=== PATIENT | female | born 1955 | race Caucasian/White ===

== ENCOUNTER 2024-11-04 08:18 | Outpatient (CLI) | payer MEDICARE, SELFPAY ==
--- NOTE | 2024-12-02 08:15 | P.SLEEP_ITS ---
Sleep Study Date of Study: 11/04/24 Ordering Provider: Zheng Ford, SERVICE SUPERVISOR Interpreting Physician: Karissa Verdin, Sleep Study Type: Polysomnogram Height: 1.65 m Weight: 85.275 kg Body Mass Index: 31.2 Neck Circumference (inches): 16 [place]: 13 Reason for Sleep Study Snoring, witnessed apneas Sleep History The patient is a 69-year-old female that had a sleep study ordered by her ENT for evaluation of sleep apnea. The patient denies awakening from sleep short breath. She rarely awakens at night with heartburn, belching. She frequently snores and is frequently loud enough that others complain. She frequently has trouble sleep when she has a cold. She denies waking up gasping for air throughout the night. She frequently has breathing problems at night observed by herself or others. She occasionally sweats excessively at night. She denies having heart palpitations or irregular heartbeats during the night. She occasionally falls asleep during the day but never while driving. She denies sleep paralysis, cataplexy and hypnagogic / hypnopompic hallucinations. She denies having trouble at school or work. She denies feeling afraid of going to sleep. She rarely has nightmares. She rarely remembers her dreams. She occasionally has thoughts racing through her mind. She rarely feels sad or depressed. She occasionally has anxiety. She occasionally has muscular tension. She denies noticing parts of her body jerk. She denies kicking during the night. She rarely has crawling and aching feelings her legs but occasionally has leg pain during the night. She occasionally grinds her teeth during sleep and occasionally awakens with morning jaw pain. She is occasionally bothered by pain during the day rarely awakened by pain during the night. She occasionally wakes up feeling stiff in morning. She occasionally wakes up with sore or achy muscles. She frequently wakes up with pain in the neck, spine or other joints. She goes to bed at 10:30 p.m. on weekdays and between 10 30-11 p.m. on the weekends. It takes her 5 minutes to fall asleep. She wakes up 2-3 times per night to urinate and it can take anywhere from a few minutes up to several hours to fall back asleep. She wakes up between 6-7 a.m. weekdays and 7:30 a.m. weekends. She typically gets 6.5-8 hours of sleep he will stay in bed for 5-10 minutes after waking up in the morning. She denies consuming any caffeinated beverages within 2 hours of bedtime. She denies engaging in physical exercise before bedtime. She will watch television before falling asleep. She will occasionally take naps in the afternoon or the evening but they are not refreshing. She consumes 2-4 caffeinated beverages per day. She rarely consumes an alcoholic beverage. She denies tobacco and recreational drug use. Sleep Procedure A full night polysomnogram using the [employer] multi-channel system recorded the standard physiologic parameters including EEG, EOG, submentalis EMG, anterior tibialis EMG, EKG, body position, nasal and oral airflow using nasal pressure sensor and thermistor.? Respiratory parameters of chest and abdominal movements were recorded with Respiratory Inductance Plethysmography belts. Oxygen saturation was recorded by pulse oximetry. Video monitoring was also performed. Sleep stages, periodic limb movements, and EEG arousals were scored in 30 second epochs according to the criteria of the AASM Scoring Manual. The Apnea-Hypopnea Index was calculated using CMS guidelines for definition of hypopnea with 4% O2 desaturations while scoring respiratory events. Sleep Architecture The total recording time was 471.6 minutes.? The total sleep time was 334.0 minutes. Sleep latency was 9.5 minutes. REM latency was 382.0 minutes. Sleep efficiency was 70.8%. The patient had 57 awakenings for an awakening index of 10.2. Wake after sleep onset time was 128.5 minutes. The patient spent 97.0 min utes, 29.0% of total sleep time in Stage N1. The patient spent 177.5 minutes, 53.1% in Stage N2. The patient spent 49.5 minutes, 14.8% in Stage N3. The patient spent 10.0 minutes, 3.0% in Stage REM sleep. Respiratory Analysis The patient had 43 hypopneas, 59 obstructive apneas and 30 central apneas for an overall Apnea Hypopnea Index of 23.7. The REM Apnea Hypopnea Index was 36.0. The NREM Apnea Hypopnea Index was 23.7. The patient had a Central Apnea Hypopnea Index of 5.4. There was no evidence of Armen-Hawkins Respirations. Arousals There were 262 total arousals for an arousal index of 47.1. There were 59 spontaneous arousals for an index of 10.6. There were 113 arousals due to respiratory events for an index of 20.3. There were 70 arousals due to periodic limb movements for an index of 12.6.? There were 21 arousals due to isolated limb movements for an index of 3.8. Periodic Limb Movements The patient had 29 isolated limb movements with an index of 5.2. The patient had 85 periodic limb movements with an index of 15.3. Patient had a total of 114 limb movements with a total limb movement index of 20.5. Oximetry Data The patient had an average oxygen saturation of 93.3% in sleep with a minimum oxygen saturation of 78.0% and a maximum oxygen saturation of 98.0%. The patient had 104 oxygen desaturations that were 4% or greater resulting in an Oxygen Desaturation Index of 18.7.? The patient spent 10.4 minutes, 2.2% of total sleep time with an oxygen saturation below 88%. Snoring Profile Mild to moderate snoring was present throughout the study. Cardiac Profile The EKG showed normal sinus rhythm. No arrhythmias or premature beats were seen. The patient had an average pulse rate of 64.3 bpm with a minimum pulse of rate of 57.0 bpm and a maximum pulse rate of 86.0 bpm.? EEG Profile No signs of seizure activity seen. Assessment and Plan Assessment and Plan (1) LUZ MARIA (obstructive sleep apnea): Code(s): G47.33 - Obstructive sleep apnea (adult) (pediatric) Status: Acute Assessment and Plan: The patient had an overall AHI of 23.7 with desaturation down to 78%. This is consistent with moderate sleep apnea. The patient had a central apnea index of 5.4, which is elevated (normal < 5). Due to the elevated central apnea index, the patient is not an ideal candidate for AutoPAP. AutoPAP can increase the frequency and severity of central apneas. I recommend that the patient have a CPAP Titration study with the use of a hypnotic (Lunesta 2-3 mg or Ambien 5-10 mg) to ensure we obtain enough sleep data and find an optimal pressure setting. *The patient needs to have an echocardiogram done to rule out cardiogenic causes of an elevated central apnea index* Data The data obtained during this sleep study is adequate for interpretation. Certification This sleep study has been reviewed by a board certified sleep medicine physician.
[2024-12-06 13:47] VITALS: BMI 31.2
== END 2024-11-05 21:19 | disposition home or self-care (01) ==
LOC: ANHCSM 08:19
PROVIDERS: Visit Provider Nurse Practitioner Family
DX: G47.33 Obstructive sleep apnea (adult) (pediatric) (principal)
CPT/HCPCS: 95810

== ENCOUNTER 2025-01-25 07:43 | Outpatient (CLI) | payer MEDICARE, BC, SELFPAY ==
--- OUTSIDE RECORDS SUMMARY | 2025-01-25 07:49 | XMS_ITS | Referral Summary ---
Author Organization [facility] Address [address] [place] [id number] Care Team Providers Care Department Store General Manager Name Role Phone Vera Ramirez NP Primary Care Provider + Linwood Moreno MD Unavailable Nicolette Gerard Unavailable [phone] Encounters Date Type Department Care Team Description 01/12/2025 3:30 PM BAKED GOODS STOCK CLERK Office Visit [facility] Obstetrical Gynecology [address] [place] [address] Claudette Galeas MD Well woman exam with routine gynecological exam (Primary Dx) 12/08/2024 1:00 PM BAKED GOODS STOCK CLERK Office Visit [facility] Cardiology [address] [place] [address] Carlos Morrissey MD Coronary artery disease involving [place] coronary artery of [place] heart without angina pectoris (Primary Dx); Mixed hyperlipidemia; Obesity (BMI 30.0-34.9) from Last 3 Months Allergies Active Allergy Reactions Criticality Noted Date Comments Amoxicillin Rash Medium 01/03/2022 Atorvastatin Other (See comments) High 10/27/2019 Hydrochlorothiazide Rash Medium 06/01/2013 Penicillin V Rash Medium 08/04/2023 Penicillins Rash,Other (See comments) Medium 11/09/2009 Phenazopyridine Rash,Other (See comments) Medium 10/27/2019 Possibly rash----or may be the HCTZ caused rash. Pollen Extracts Other (See comments) Low 09/25/2012 Ragweed Rhinitis Low 09/25/2012 seasonal Rosuvastatin Other (See comments) Medium 10/27/2019 Sulfa (Sulfonamide Antibiotics) Rash,Other (See comments) Medium 10/27/2019 unknown Medications calcium carbonate/vitam in D3 (CALCIUM 500 + D, D3, ORAL) Take 1 tablet by mouth nightly Active vit A/vit C/vit E/zinc/copper (ICAPS AREDS ORAL) Take 1 tablet by mouth 2 (two) times a day Active cholecalciferol (VITAMIN D-3) 2000 unit capsule Take 2 capsules (4,000 Units total) by mouth daily Active cranberry 500 mg capsule Take 500 mg by mouth daily 01/21/2022 Active Nystop powder as needed 07/15/2023 Activ e acidophilus-pec tin, citrus 100 million cell-10 mg capsule Take 1 tablet by mouth daily Active aspirin 81 mg chewable tablet Take 1 tablet (81 mg total) by mouth 2 (two) times a day for 14 days 28 tablet 08/26/2023 Active fenofibrate (TRIGLIDE) 160 mg tablet TAKE 1 TABLET BY MOUTH ONCE A DAY 30 tablet 2 06/14/2024 Active ezetimibe (ZETIA) 10 mg tablet TAKE 1 TABLET BY MOUTH ONCE A DAY 30 tablet 6 10/13/2024 Active krill oil 500 mg capsule Take by mouth Activ e azelastine (ASTELIN) 137 mcg (0.1 %) nasal spray Active vit D3-vit Q-dxcmsjrve-muc s [id number] mapf-zvw-lh-mg tablet Take by mouth Active Active Problems Problem Noted Date Diagnosed Date Colon cancer screening 07/08/2024 History of ankle surgery 09/08/2023 Overview (09/08/2023): Left ankle arthroscopy with retrograde drilling talus /tibia Assessment & Plan (09/08/2023 1:53 PM CDT): Patient is doing very well overall. Her pain is well controlled with eshx-xss-ncvoqqi pain medication. There is no evidence of infection of the surgical site. Sutures were removed today in clinic and Steri-Strips were applied. Discussed with the patient to continue to keep the surgical site clean and dry until her follow-up appointment. Reviewed signs of infection today with the patient including purulent drainage, increased erythema and swelling around the surgical sites, increased pain in the ankle, fever, chills and she will notify us if she develops any of these. Discussed with the patient she should continue to remain nonweightbearing on the ankle for the next 2 weeks. In 2 weeks she may begin to put some weight on the ankle while in the boot for transfers and for ambulation of short distances only. She expressed understanding of this. She will follow up with Dr. Ortiz in 4 weeks for 6 week postop appointment where she will need x-rays. Osteochondral defect of ankle 08/21/2023 Cramps of lower extremity 08/04/2023 Low back pain 08/04/2023 Pain in axilla 08/04/2023 Pain in thoracic spine 08/04/2023 Seasonal allergies 08/04/2023 Skin problem 08/04/2023 Obesity (BMI 30.0-34.9) 10/16/2022 Osteopenia 08/19/2022 Overview (08/04/2023): hips Calcaneal spur of left foot 08/09/2022 Hiatal hernia 06/05/2022 Neuralgia of right sciatic nerve 01/01/2021 Coronary artery disease invo lving [place] coronary artery of [place] heart without angina pectoris 11/06/2020 S/P drug eluting coronary stent placement 2019 Essential hypertension 11/06/2020 Precordial pain 08/14/2020 Snoring 07/27/2020 Metabolic dysfunction-associ ated steatotic liver disease (MASLD) 07/05/2020 Assessment & Plan (06/28/2024 7:12 PM CDT): Essentially unchanged based on the absence of change in her weight. Obviously, stability is preferred over an increase in weight. However, I would like to see her decrease her weight through caloric restriction and a regular exercise program. This is clearly the most effective means of decreasing hepatic steatosis and minimizing long-term liver damage. I gave her a weight loss goal of 10 lb over the course of the next year. She will return in 1 year or when clinically indicated. Assessment & Plan (06/23/2023 11:37 AM CDT): Fortunately she has normal liver chemistries. She has gained weight since her last office visit. We recommend lifestyle changes including regular exercise and dietary changes including calorie restriction to maintain a healthy weight. She will benefit from referral to a doctor of audiology on diet education. Assessment & Plan (04/29/2022 3:47 PM CDT): Patient's weight has been stable over the past year so but she did lose initial weight of 25-30 lb after diagnosis of fatty liver. She had recent CT urogram which showed normal liver size and recent LFTs in March of 2022 which were normal. We encouraged her continued efforts at weight loss. She will return to clinic in 1 year or sooner if clinically indicated. Assessment & Plan (05/14/2021 5:18 PM CDT): Based on imaging studies and multiple features of the metabolic syndrome. We discussed the cause of increased hepatic fat, i.e., inadequate metabolism of fat delivered to the liver. When associated with elevated transaminases, this is non-alcoholic steatohepatitis. This inflammation can lead to scar tissue or cirrhosis of the liver in approximately 30% of cases. Patients with cirrhosis are at risk for developing complications of portal hypertension, liver failure, , liver cancer, and/or the need for a liver transplant. Fat in the absence of elevated transaminases is non-alcoholic fatty liver disease. Routinely, this is not associated with inflammation or progressive hepatic fibrosis. The most effective treatment of fatty liver is weight loss, ideally achieved through a combination of caloric restriction and exercise. Aerobic exercise for 4 hours a week can accelerate fat metabolism and lead to improvement of liver tests. Weight loss of 5-10% of the current body weight usually leads to improvement in liver tests, liver inflammation, and a decrease in hepatic fibrosis. Her weight loss has likely resulted in a decrease in hepatic fat. The pitt is maintaining her current weight her even losing additional weight. Unfortunately, gaining weight will lead to a further increase in hepatic fat. There is no obvious evidence of hepatic fibrosis. I see no contraindication to the occasional ingestion of an alcoholic beverage. I asked her to return in 1 year or when clinically indicated. Prediabetes 05/16/2020 Vitamin D deficiency 07/07/2019 Acute serous otitis media of right ear 6 Cystitis 08/24/2015 Overview (08/04/2023): Added automatically from request for surgery [id number] Mixed hyperlipidemia 12/16/2014 Acute upper respiratory infection 11/10/2014 Disorder of skin or subcutaneous tissue 11/10/20 14 Disease of hair and hair follicles 10/18/2014 Cellulitis and abscess of trunk 10/17/2014 Blood in urine 05/21/2013 Knee pain 09/25/2012 Osteoarthritis 09/25/2012 Spinal stenosis in cervical region 09/24/2012 Hypercholesterolemia 09/24/2012 Dysuria 11/09/2009 Resolved Problems Problem Noted Date Diagnosed Date Resolved Date S/P drug eluting coronary stent placement 11/06/2020 11/06/2020 Dyslipidemia 08/14/2020 10/15/2021 Obesity (BMI 35.0-39.9 without comorbidity) 08/14/2020 10/16/2022 Immunizations Immunization Administration Dates Next Due Flucelvax Influenza Quad 09/29/2019,01/02/2018 Hep B Vaccine 08/17/2002,04/20/2002,03/16/2002 Influenza, Quadrivalent, Karo l Culture-based MDCK, Antibiotic Free, Intramuscular 10/27/2018 Influenza, Quadrivalent, Karo l Culture-based MDCK, Preservative Free, Antibiotic Free, Intramuscular 08/29/2020 Influenza, Quadrivalent, Spl it, Intramuscular 08/29/2020 Influenza, Trivalent, Preser vative Free, Intramuscular 10/28/2016,12/08/2012 Moderna SARS-CoV-2 Monovalen t Vaccination (12+ YRS) 01/05/2021,12/04/2020 Tdap 11/05/2013 Social History Tobacco Use Types Packs/Day Years Used Date Smoking Tobacco: Never Smokeless Tobacco: Never Tobacco Cessation:Counseling Given: Not Answered Alcohol Use Standard Drinks/Week Comments Yes 0 (1 standard drink = 0.6 oz pur e alcohol) AUDIT-C Answer Date Recorded Q1: How often do you have a drink containing alc ohol? 2-4 times a month 08/16/2024 Q2: How many drinks containi ng alcohol do you have on a typical day when you are drinking? 1 or 2 08/16/2024 Q3: How often do you have si x or more drinks on one occasion? Never 08/16/2024 Personal Safety Answer Date Recorded Have you ever been in or are you currently in a harmful physical or emotional relationship or is someone making you feel afraid or unsafe? 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 Not on file Not on file Last Filed Vital Signs Vital Sign Reading Time Taken Comments Blood Pressure 156/78 01/12/2025 3:29 PM BAKED GOODS STOCK CLERK Pulse 79 12/08/2024 1:41 PM BAKED GOODS STOCK CLERK Temperature 37.1 C (98.8 F) 08/16/2024 9:56 AM CDT Respiratory Rate 19 08/16/2024 10:35 AM CDT Oxygen Saturation 100% 08/16/2024 10:35 AM CDT Inhaled Oxygen Concentration - - Weight 90.7 kg (200 lb) 01/12/2025 3:29 PM BAKED GOODS STOCK CLERK Height 166.4 cm (5' 5.51 ) 01/12/2025 3:29 PM CS T Body Mass Index 32.76 01/12/2025 3:29 PM BAKED GOODS STOCK CLERK Plan of Treatment Not on file Medical Devices Implanted Type Area Parts Professional Device Identifier Shelf Expiration Date Model / Serial / Lot [place] Neck Description:Also 6 screws p laced in my neck Stent N/A: Chest Description:Cardiac stent 10/02/2020 [employer] Pro-Dense Injectable Regenerative Triphasic Resorption Profile [id number] - [id number] Implanted:Qty: 1 on 08/26/2023 by Pasquale Ortiz DO at [facility] Left: Ankle [employer] [id number] 09/15/2024 [id number] / / [id number] [employer] Graft Bone Filler Regn Inj Pro Dense 5cc [id number] - [id number] Implanted:Qty: 1 on 08/26/2023 by Pasquale Ortiz DO at [facility] Left: Ankle [employer] [id number] 07/02/2028 [id number] / / [id number] Procedures Procedure Name Priority Date/Time Associated Diagnosis Comments HEPATIC FUNCTION PANEL Routine 11/10/2024 11:12 AM BAKED GOODS STOCK CLERK Coronary artery disease involving [place] coronary artery of [place] heart without angina pectoris Mixed hyperlipidemia Obesity (BMI 30.0-34.9) LIPID PANEL Routine 11/10/2024 11:12 AM BAKED GOODS STOCK CLERK Coronary artery disease involving [place] coronary artery of [place] heart without angina pectoris Mixed hyperlipidemia Obesity (BMI 30.0-34.9) COLONOSCOPY 08/16/2024 9:37 AM CDT SCREENING MAMMOGRAM BILATERAL W TRE Schedule Routine, Read Routine (OP Routine) 06/28/2024 1:21 PM CDT Screening mammogram, encounter for from Last 3 Months or Most Recently Relevant to Health Maintenance Results * Hepatic function panel (11/10/2024 11:12 AM BAKED GOODS STOCK CLERK) Protein, sr 6.8 6.0 - 8.5 g/dL [facility] - 01 Albumin 4.9 3.9 - 4.9 g/dL [facility] - 01 Bilirubin, Total 0.3 0.0 - 1.2 mg/dL [facility] - 01 Bilirubin, direct 0.14 0.00 - 0.40 mg/dL [facility] - 01 Alk phos 93 44 - 121 IU/L [facility] - 01 AST 27 0 - 40 IU/L [facility] - 01 ALT 29 0 - 32 IU/L [facility] - 01 Blood 11/10/2024 11:1 2 AM BAKED GOODS STOCK CLERK 11/10/2024 Narrative [facility] - 11/11/2024 9:36 AM BAKED GOODS STOCK CLERK Performed at: 01 - [facility] [address] [id number] Pump Operator Byproducts: Andrey Roy PhD, Phone: [phone] us Carlos Morrissey MD LAB BLOOD ORDERABLES Final Result [facility] - 01 * Lipid panel (11/10/2024 11:12 AM BAKED GOODS STOCK CLERK) Cholesterol 149 100 - 199 mg/dL [facility] - 01 Triglycerides 139 0 - 149 mg/dL [facility] - 01 HDL Cholesterol 50 >39 mg/dL [facility] - 01 VLDL 24 5 - 40 mg/dL [facility] - 01 LDL, calculated 75 0 - 99 mg/dL [facility] - 01 Blood 11/10/2024 11:1 2 AM BAKED GOODS STOCK CLERK 11/10/2024 Narrative [facility] - 11/11/2024 9:36 AM BAKED GOODS STOCK CLERK Performed at: - [facility] [id number] Pump Operator [employer]products: Andrey Roy PhD, Phone: [phone] us Carlos Morrissey MD LAB BLOOD ORDERABLES Final Result [facility] * Colonoscopy (08/16/2024 9:37 AM CDT) Anatomical Region Laterality Modality Other Narrative Procedure Note Milind Us MD - 08/16/2024 9:37 AM CDT ENDOSCOPY LAB Patient Name: Dilip Shannon Procedure Date: 08/16/2024 9:37 AM Date of : 1955 Admit Type: Outpatient Age: 69 Gender: Female Attending MD: Milind Us M.D. Room: [facility] ENDOSCOPY ROOM 04 Note Status: Finalized Procedure: Colonoscopy Indications: High risk colon cancer surveillance: Personalhistory of colonic polyps, Last colonoscopy: 2019 Providers: Milind Us M.D. Referring MD: Skinny Odell M.D. Medicines: Monitored Anesthesia Care Complications: No immediate complications. Estimated Blood Loss: Estimated blood loss: none. Procedure: Pre-Anesthesia Assessment: - The risks and benefits of the procedure and the sedation options and risks were discussed with the patient. All questions were answered and informed consent was obtained. - Immediately prior to administration ofmedications, the patient was re-assessed for adequacy to receive sedatives. The benefits, risks and alternatives of theprocedure and sedation were discussed and informed consentwas obtained. All questions were answered. Please referto the signed informed consent document in the medical record. The scope was passed under direct vision.The [id number] was introduced through the anusand advanced to the cecum, identified by appendiceal orifice and ileocecal valve. The colonoscopy was performed without difficulty. The patient tolerated the procedure well. The quality of the bowel preparation was adequate. The bowel preparationused was GoLYTELY via split dose instruction. Findings: The perianal and digital rectal examinations were normal. A 5 mm polyp was found in the transverse colon. The polyp wassessile. The polyp was removed with a cold snare. Resection and retrieval were complete. The exam was otherwise without abnormality on direct and retroflexion views. Impression: - One 5 mm polyp in the transverse colon, removedwith a cold snare. Resected and retrieved. - The examination was otherwise normal on directand retroflexion views. Recommendation: - Return to referring physician as previously scheduled. - Await pathology results. - Repeat colonoscopy in 5 years for surveillance. Attending Participation: I personally performed the entire procedure. Electronically signed by Milind Us M.D. Milind Us M.D. 08/16/2024 9:57:19 AM Number of Addenda: 0 Note Initiated On: 08/16/2024 9:37 AM Milind Us MD ENDOSCOPY PROCEDURES Final Result * Screening Mammogram Bilateral W Tre (06/28/2024 1:21 PM CDT) Anatomical Region Laterality Modality Breast Bilateral Mammography Narrative 06/29/2024 3:09 PM CDT Mammogram Technique: Bilateral Digital Breast Tomosynthesis, Bilateral C-view 2D Screening mammogram. Views obtained: bilateral craniocaudal and bilateral mediolateral oblique. Computer Aided Detection was performed. Mammogram Findings: The present examination has been compared to prior imaging studies performed at [facility] on 01/17/2020, 10/22/2021 and 06/04/2023. There are scattered areas of fibroglandular density. There is no suspicious abnormality in either breast. Impression: There is no mammographic evidence of malignancy. Annual screening mammography is recommended. OVERALL FINAL ASSESSMENT: BI-RADS CATEGORY 1: Negative. Procedure Note Rigoberto Okeefe MD - 06/29/2024 Mammogram Technique: Bilateral Digital Breast Tomosynthesis, Bilateral C-view 2D Screening mammogram. Views obtained: bilateral craniocaudal and bilateral mediolateral oblique. Computer Aided Detection was performed. Mammogram Findings: The present examination has been compared to prior imaging studies performed at [facility] on 01/17/2020,10/22/2021 and 06/04/2023. There are scattered areas of fibroglandular density. There is no suspicious abnormality in either breast. Impression: There is no mammographic evidence of malignancy. Annual screening mammography is recommended. OVERALL FINAL ASSESSMENT: BI-RADS CATEGORY 1: Negative. Self Screening Mammogram IMG MAMMO PROCEDURES Fi nal Result from Last 3 Months or Most Recently Relevant to Health Maintenance Insurance MEDICARE [facility] [employer] [id number] [place] [address] MEDICARE [facility] [employer] Advance Directives For more information, please contact: [phone] Documents on File Type Date Recorded Patient After School Program Assistant Expl anation ADVANCE DIRECTIVE 01/14/2022 7:35 AM Power of Wrecking Mechanic-Medical * Full Code (Latest Code Status on File) Date Activated Date Inactivated Comments 08/16/2024 9:15 AM 08/16/2024 2:59 PM Care Teams Department Store General Manager Relationship Specialty Start Date End Date Vera Ramirez [address] [place] [address] PCP - General 11/13/20 Linwood Moreno MD [address] [place] [address] Consulting Physician Urology 01/22/22 Nicolette Gerard PA [address] [place] [address] Orthopedic Surgery 08/26/23
--- OUTSIDE RECORDS SUMMARY | 2025-01-25 07:49 | XMS_ITS | Clinical Summary ---
Author Organization [facility] Address [address] [place] [id number] Care Team Providers Care Office Manager Name Role Phone Vera Ramirez NP Primary Care Provider + Linwood Moreno MD Unavailable Nicolette Gerard Unavailable [phone] Allergies Active Allergy Reactions Criticality Noted Date [...] (0.1 %) nasal spray Active vit D3-vit W-nbtqekwpo-djb s [phone] kflp-yqi-pr-mg tablet Take by mouth Active Active Problems Problem Noted Date Diagnosed Date Colon cancer screening 07/08/2024 History of ankle surgery 09/08/2023 Overview (09/08/2023): Left ankle arthroscopy with retrograde drilling talus /tibia Assessment & Plan (09/08/2023 1:53 PM CDT): Patient is doing very well overall. Her pain is well controlled with xtrq-mut-jltzrpu pain medication. There is no evidence of [...] nerve 01/01/2021 Coronary artery disease invo lving lummi coronary artery of lummi heart without angina pectoris 11/06/2020 S/P drug [...] She will benefit from referral to a labeling machine operator on diet education. Assessment & Plan (04/29/2022 [...] (08/04/2023): Added automatically from request for surgery [id number] Mixed hyperlipidemia 12/16/2014 Acute upper respiratory infection [...] Obesity (BMI 35.0-39.9 without comorbidity) 08/14/2020 10/16/2022 Encounters Date Type Department Care Team Description 01/12/2025 3:30 PM SUPERVISOR TRAIN OPERATIONS Office Visit [facility] Obstetrical Gynecology [address] [place] [phone] Claudette Galeas MD Well woman exam with routine gynecological exam (Primary Dx) 12/08/2024 1:00 PM SUPERVISOR TRAIN OPERATIONS Office Visit [facility] [address] [place] [phone] Carlos Morrissey MD Coronary artery disease involving lummi coronary artery of lummi heart without angina pectoris (Primary Dx); Mixed hyperlipidemia; Obesity (BMI 30.0-34.9) from Last 3 Months Immunizations Immunization Administration Dates Next Due Flucelvax Influenza Quad 09/29/2019,01/02/2018 Hep B Vaccine 08/17/2002,04/20/2002,03/16/2002 Influenza, Quadrivalent, Karo l Culture-based MDCK, Antibiotic Free, Intramuscular 10/27/2018 Influenza, Quadrivalent, Karo l Culture-based MDCK, Preservative Free, Antibiotic Free, Intramuscular 08/29/2020 Influenza, Quadrivalent, Spl it, Intramuscular 08/29/2020 Influenza, Trivalent, Preser vative Free, Intramuscular 10/28/2016,12/08/2012 Moderna SARS-CoV-2 Monovalen t Vaccination (12+ YRS) 01/05/2021,12/04/2020 Tdap 11/05/2013 Surgical History Surgery Date Site/Laterality Comments SD TONSILLECTOMY PRIMARY/SECONDARY <AGE 13 11/24/1967 - 11/23/1968 Tonsillectomy - 1967 (Added by TW Conv) NECK SURGERY 11/24/2004 - 11/23/2005 Neck Surgery - (Added by TW Conv) SECTION SECTION SECTION CARDIAC CATHETERIZATION 11/24/2019 - 11/23/2020 CYSTOSTOMY W/ BLADDER BIOPSY 05/24/2012 - 06/23/2012 CORONARY STENT PLACEMENT 11/24/2019 - 11/23/2020 one stent COLONOSCOPY 11/24/1999 - 11/23/2000 polypectomy SD CHOLECYSTECTOMY 11/24/1997 - 11/23/1998 Cholecystectomy - (Added by TW Conv) SECTION, CLASSIC 82,85,87 ANKLE SURGERY 08/26/2023 Left Ankle Arthroscopy With Retrograde Drilling Talus/tibia POLYPECTOMY Medical History Medical History Date Comments Personal history of other en docrine, nutritional and metabolic disease History of hyperchol esterolemia - (Added by TW Conv) Personal history of other di seases of the circulatory system History of hypertension - (A dded by TW Conv) Hyperlipidemia High cholesterol History of recurrent UTIs Hematuria, gross at times Hypertension checks at home B P ok, no meds, has white coat syndrome where BP goes up with MD visits Irritable bowel syndrome occassi onal bouts of diarrhea, very spuratic PONV (postoperative nausea a nd vomiting) per pt, it happens while she is still asleep Wears glasses S/p dental crown 1 or 2 Urinary tract infection Burn on back 2 small spots from heating pad wear bra hooks Sciatica right side Asthma Snores Hiatal hernia Obesity Ankle injuries, left, sequela Liver disease Colon polyp Coronary artery disease Heart disease Arthritis Abnormal Pap smear of cervix Family History Medical History Relation Name Comments Diabetes Father Talon Martin Heart attack Father Talon Martin Heart disease Father Talon Martin Hyperlipidemia Father Talon Martin Hypertension Father Talon Martin Obesity Father Talon Martin Vision loss Father Talon Martin chest cancer Maternal Grandmother Bladder Cancer Mother Bret Martin Family his tory of bladder cancer - (Added by TW Conv) Cancer Mother Bret Martin Diabetes Mother Bret Martin Heart disease Mother Bret Martin Hyperlipidemia Mother Bret Martin Hypertension Mother Bret Martin Kidney disease Mother Bret Martin Obesity Mother Bret Martin Vision loss Mother Bret Martin Colon cancer Other Breast cancer Neg Hx Ovarian cancer Neg Hx Uterine cancer Neg Hx Relation Name Status Comments Father Talon Martin Maternal Grandmother Mother Bret Martin Other Social History Tobacco Use Types Packs/Day Years [...] on file Legal Sex Female 7:53 PM SUPERVISOR TRAIN OPERATIONS Gender Identity Female 05/11/2021 11:31 AM CDT Sexual Orientation Not on file 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 Not on file Not on file Obstetrics History Para Term AB IAB SAB Ectopic Multiple Livin g Live Births 3 3 3 Date Outcome GA Total Labor Labor/2nd/3rd Weight Sex Type Anes PTL Lisbeth A1 A5 Name Clin Para Para Para Comments 11/18 Last Filed Vital Signs Vital Sign Reading Time Taken Comments Blood Pressure 156/78 01/12/2025 3:29 PM SUPERVISOR TRAIN OPERATIONS Pulse 79 12/08/2024 1:41 PM SUPERVISOR TRAIN OPERATIONS Temperature 37.1 C (98.8 F) 08/16/2024 9:56 AM CDT Respiratory Rate 19 08/16/2024 10:35 AM CDT Oxygen Saturation 100% 08/16/2024 10:35 AM CDT Inhaled Oxygen Concentration - - Weight 90.7 kg (200 lb) 01/12/2025 3:29 PM SUPERVISOR TRAIN OPERATIONS Height 166.4 cm (5' 5.51 ) 01/12/2025 3:29 PM CS T Body Mass Index 32.76 01/12/2025 3:29 PM SUPERVISOR TRAIN OPERATIONS Plan of Treatment Health Maintenance Due Date Last Done Comments Depression Screening 1955 Hepatitis C Screening 1955 Pneumococcal vaccine 65+ (1 of 2 - PCV) 1975 Zoster Vaccine (1 of 2) 2006 Well Visit 65+ 2021 10/27/2019 Influenza Vaccine (#1) 2024 , 08/29/2020, 09/29/2019, Additional history exists Osteoporosis Screening-Bone Density Scan 08/14/2024 08/14/2022, 08/08/2022, 06/05/2022 Covid-19 Vaccine (2023-2 5 season) 2024 08/30/2024, 06/05/2022, 11/09/2021, Additional history exists Breast Cancer Screening-Mammogram 06/28/2025 06/28/2024, 06/04/2023, 10/23/2021, Additional history exists Fall Risk Assessment 08/16/2025 08/16/2024 Colon Cancer Screening-Colonoscopy 08/16/2034 08/16/2024, 04/25/2014 DTaP/Tdap/Td Vaccine (3 - Td or Tdap) 08/18/2034 08/18/2024, 11/05/2013 Colon Cancer Screening-CT Colonography Discontinued 08/16/2024, 04/25/2014 Colon Cancer Screening-DNA Stool Discontinued 08/16/20 24, 04/25/2014 Colon Cancer Screening-FIT Discontinued 08/16/2024, Colon Cancer Screening-Sigmoidoscopy Discontinued 08/16/2024, 04/25/2014 Medical Devices Implanted Type Area Manager Business Management Device Identifier Shelf Expiration Date Model / Serial / Lot [place] Neck Description:Also 6 screws p laced in my neck Stent N/A: Chest Description:Cardiac stent 10/02/2020 [employer] Pro-Dense Injectable Regenerative Triphasic Resorption Profile [id number] - [id number] Implanted:Qty: 1 on 08/26/2023 by Pasquale Ortiz DO at [facility] Left: Ankle [employer] [id number] 09/15/2024 [id number] / / [id number] [employer] Graft Bone Filler Regn Inj Pro Dense 5cc [id number] - [id number] Implanted:Qty: 1 on 08/26/2023 by Pasquale Ortiz DO at [facility] Left: Ankle [employer] [id number] 07/02/2028 [id number] / / [id number] Procedures Procedure Name Priority Date/Time Associated Diagnosis Comments HEPATIC FUNCTION PANEL Routine 11/10/2024 11:12 AM SUPERVISOR TRAIN OPERATIONS Coronary artery disease involving lummi coronary artery of lummi heart without angina pectoris Mixed hyperlipidemia Obesity (BMI 30.0-34.9) LIPID PANEL Routine 11/10/2024 11:12 AM SUPERVISOR TRAIN OPERATIONS Coronary artery disease involving lummi coronary artery of lummi heart without angina pectoris Mixed hyperlipidemia Obesity (BMI 30.0-34.9) COLONOSCOPY 08/16/2024 9:37 AM CDT SCREENING MAMMOGRAM BILATERAL W TRE Schedule Routine, Read Routine (OP Routine) 06/28/2024 1:21 PM CDT Screening mammogram, encounter for from Last 3 Months or Most Recently Relevant to Health Maintenance Results * Hepatic function panel (11/10/2024 11:12 AM SUPERVISOR TRAIN OPERATIONS) Protein, sr 6.8 6.0 - 8.5 g/dL [...] - 01 Blood 11/10/2024 11:1 2 AM SUPERVISOR TRAIN OPERATIONS 11/10/2024 Narrative [facility] - 11/11/2024 9:36 AM SUPERVISOR TRAIN OPERATIONS Performed at: - [address] [id number] Die Cast Engineer: Andrey Roy PhD, Phone: [phone] us Carlos Morrissey MD LAB BLOOD ORDERABLES Final Result [facility] - 01 * Lipid panel (11/10/2024 11:12 AM SUPERVISOR TRAIN OPERATIONS) Cholesterol 149 100 - 199 mg/dL [facility] - 01 Triglycerides 139 0 - 149 mg/dL [facility] - 01 HDL Cholesterol 50 >39 mg/dL [facility] - 01 VLDL 24 5 - 40 mg/dL [facility] - 01 LDL, calculated 75 0 - 99 mg/dL [facility] - 01 Blood 11/10/2024 11:1 2 AM SUPERVISOR TRAIN OPERATIONS 11/10/2024 Narrative [facility] - 11/11/2024 9:36 AM SUPERVISOR TRAIN OPERATIONS Performed at: [facility] [address] [id number] Die Cast Engineer: Andrey Roy PhD, Phone: [phone] us Carlos Morrissey MD LAB BLOOD ORDERABLES Final Result [facility] * Colonoscopy (08/16/2024 9:37 AM CDT) Anatomical Region Laterality Modality Other Narrative Procedure Note Milind Us MD - 08/16/2024 9:37 AM CDT ENDOSCOPY LAB Patient Name: Dilip Shannon Procedure Date: 08/16/2024 9:37 AM Date of : 1955 Admit Type: Outpatient Age: 69 Gender: Female Attending MD: Milind Us M.D. Room: [facility] ENDOSCOPY ROOM 04 Note Status: Finalized Procedure: [...] The scope was passed under direct vision.The [id number] was introduced through the anusand advanced to [...] compared to prior imaging studies performed at [facility] on 01/17/2020, 10/22/2021 and 06/04/2023. There are [...] compared to prior imaging studies performed at [facility] on 01/17/2020,10/22/2021 and 06/04/2023. There are scattered areas of fibroglandular density. There is no suspicious abnormality in either breast. Impression: There is no mammographic evidence of malignancy. Annual screening mammography is recommended. OVERALL FINAL ASSESSMENT: BI-RADS CATEGORY 1: Negative. us Self Screening Mammogram IMG MAMMO PROCEDURES Fi nal Result from Last 3 Months or Most Recently Relevant to Health Maintenance Insurance MEDICARE [facility] [employer]AL [facility] [place] [address] MEDICARE [facility] FEDERAL Advance Directives For more information, please contact: [phone] Documents on File Type Date Recorded Patient Wax Machine Operator Expl anation ADVANCE DIRECTIVE 01/14/2022 7:35 AM Power of Clearing Tub Worker-Medical * Full Code (Latest Code Status on File) Date Activated Date Inactivated Comments 08/16/2024 9:15 AM 08/16/2024 2:59 PM Care Teams Office Manager Relationship Specialty Start Date End Date Vera Ramirez, PREPARATION ROOM WORKER [address] [place] [address] PCP - General 11/13/20 Linwood Moreno MD [address] [place] [address] Consulting Physician Urology 01/22/22 Nicolette Gerard PA [address] [place] [address] Orthopedic Surgery 08/26/23
--- OUTSIDE RECORDS SUMMARY | 2025-01-25 07:50 | XMS_ITS | Encounter Summary ---
Author Organization [facility] Address [address] [place] [address] Care Team Providers Care Resident Manager Name Role Phone Unavailable Primary Care Provider Unavailabl e Encounter Details Date Type Department Care Team (Late st Contact Info) Description 12/26/2020 Lab Requisition [facility] [address] [place] [phone] Precious Quinonez DO [address] [place] [address] Social History Tobacco Use Types Packs/Day Years Used Date Smoking Tobacco: Never Assessed Sex and Gender Information Value Date Recorded Sex Assigned at Not on file Gender Identity Not on file Sexual Orientation Not on file documented as of this encounter Plan of Treatment Not on file documented as of this encounter Procedures Procedure Name Priority Date/Time Associated Diagnosis Comments DERMATOPATHOLOGY Routine 12/25/2020 12:0 0 AM ACT TUTOR documented in this encounter Results * DERMATOPATHOLOGY (12/25/2020 12:00 AM ACT TUTOR) Case Report Dermatopathology Report Case: [id number] Authorizing Provider: Precious Quinonez DO Collected: 12/25/2020 12:00 AM Ordering Location: [facility] Received: 12/26/2020 12:30 PM Pathologist: Sydnee Rashid MD Specimen: Skin, right post LE 3:26 PM ACT TUTOR DERMATOPATHOLOGY LABORATORY Final Diagnosis Specimen A. SKIN, right post LE: LICHEN PLANUS-LIKE KERATOSIS (BENIGN LICHENOID KERATOSIS) (L82.1) 3:26 PM ACT TUTOR DERMATOPATHOLOGY LABORATORY Clinical History LPLK R/O NMSC 3:26 PM [facility] DERMATOPATHOLOGY LABORATORY Gross Description Specimen A: Received is one formalin filled container labeled with the patient's name and designated right post LE. The specimen consists of a shave biopsy measuring 7x6x1 mm. Jar 0. 3:26 PM [facility] DERMATOPATHOLOGY LABORATORY Microscopic Description Specimen A. SKIN, right post LE: The epidermis is mildly acanthotic. There is a lichenoid infiltrate with vacuolar changes of basilar keratinocytes and scattered necrotic keratinocytes. 3:26 PM [facility] DERMATOPATHOLOGY LABORATORY Disclaimer An external and internal positive and negative controls are appropriate for the histochemical, immunohistochemical and immunofluorescence stain(s) in this case (if any), except where stated explicitly. The performance characteristics of the stain(s) cited in this report were developed and its performance characteristic determined by the Dermatopathology Laboratory at [facility], directed by Dr. Fadia Gonzalez. These tests need not be, and therefore are not, approved by the [place] Food and Drug Administration. The tests are used for clinical purposes. Billing Codes Specimen Charges Stain Charges 97404 1 3:26 PM [facility] DERMATOPATHOLOGY LABORATORY Embedded Images 3:26 PM [facility] DERMATOPATHOLOGY LABORATORY Pathology/Cytolog y TISSUE SPECIMEN FROM SKIN / Unknown 12/25/2020 12/26/2020 12:30 PM ACT TUTOR Precious Quinonez DO LAB - PATHOLOGY/C YTOLOGY ORDERABLES DERMATOPATHOLOGY LABORATORY [facility] - Department of Dermatology [address], [address] [phone] documented in this encounter Visit Diagnoses Not on filedocumented in this encounter
--- OUTSIDE RECORDS SUMMARY | 2025-01-25 07:50 | XMS_ITS | Data Portability ---
Author Organization [facility] [place] Perry Address [address] [facility] [place] [address] Care Team Providers Care Snailer Name Role Phone JOSE CRUZ NIÑO Mill Crane Operator [facility] Channel Director KUMAR RAO Online Merchandising Coordinator MICA BENAVIDES Tunnel Miner WILLIAM PETER Urologist LIZABETH BAILEY Orthopedic Surgeon [phone] Assessment No assessment recorded. Plan of Treatment Reminders Order Date Submit Date Provider Last Modified By Organization Details Last Modified Time Details Appointments None record ed. Lab vitami n D, 25-hyd lilly, total, serum [address] [facility], [address] [place] [address], [address], [place], [address], 3 16:13:48 rf (rheum atoid factor ), serum [address] [facility], [address] [place] [address], [address], [place], [address], 3 16:13:47 C reacti ve protei n, QN, serum or plasma [address] [facility], [address] [place] [address], [address], [place], [address], 3 16:13:47 JEREMY (antin uclear antibo dies) screen , serum 2022 023 [facility], [address] [facility], [address], [place], [address], 3 16:13:44 ESR (eryth rocyte sedime ntatio n rate), blood 2022 023 [facility], [address] [facility], [address], [place], [address], 3 16:13:46 CBC w/ auto diff 2022 023 [email or web address], [address] [facility], [address], [place], [address], 3 15:46:34 TSH, ultra- sensit jazmyne, serum 2022 023 [facility], [address] [facility] [address], [address], [place], [address], 3 16:13:45 CMP, serum or plasma 2022 023 [facility], [address] [facility], [address], [place], [address], 3 16:13:45 cultur e, urine 2021 022 [facility], [address] [place] [address], [address], [place], [address], 2 03:07:19 urinal ysis, dipsti ck 2021 022 [email or web address] In-Office Order, Internal Use Only DO Not Attach Compendium DO Not Attach Compendium, Do Not Delete/merge, [id number] 14:38:07 Referral sleep medici ne referr al - Please review and contac t Pt to elis lundberg, thank you 2023 [facility], [address], [place], [address], 18:18:05 Procedures None record ed. Surgeries None record ed. Imaging DEXA - Please review and contac t pt to elis lundberg. Thanks !last dexa was on 2023 BR[facility], [address], [address], [place], [address], 13:44:02 XR, ankle, 3 or more view - FYI... pt would like done when she gets her Dexa done 2021 BRITT[facility], [address], [address], [place], [address], 11:42:36 DEXA - please contac t pt to elis lundberg. thanks ! 2021 [facility], [address], [address], [place], [address], 13:20:35 Medication Orders fenofi brate 160 mg tablet 2023 [facility], [address] [place], [address], 4 11:51:55 mupiro aurora 2 % topica l ointme nt 2023 [facility], [address] [place], [address], 4 11:51:54 predni sone 20 mg tablet 2023 [facility], [address] [place], [address], 4 10:51:04 Zithro max Z-Seb 250 mg tablet 2023 024 BRITTNY [facility], [address] [place], [address], 4 10:44:42 Cipro 500 mg tablet 2021 022 [email or web address] [facility], [address] [place], [address], 3 10:22:01 Patient TargetsNo targets recorded. Patient Instructions Encounter Date Encounter Id Patient Instructions Last Modified By Organization Details Last Modified Time 06/05/2022 [id number] Pt to f/u in 1 year or as needed. [email or web address] Not available 06/05/2022 11:41:59 06/18/2023 [id number] A healthy lifestyle: care instructions [email or web address] Not available 06/18/2023 10:33:38 Discussed vitamins and medications as well when to take and what not to take together. [email or web address] Not available 06/18/2023 10:53:16 12/04/2023 [id number] A healthy lifestyle: care instructions [email or web address] Not available 12/04/2023 17:03:59 08/18/2024 [id number] well visit, over 65: care instructions [email or web address] Not available 08/18/2024 11:48:42 A healthy lifestyle: care instructions [email or web address] Not available 08/18/2024 11:47:02 epworth sleepiness scale* [email or web address] Not available 08/18/2024 11:47:02 Reason for Referral Sleep Medicine Referral for Snoring Please review and contact Pt to schedule, thank you Referring Physician: Vera Ramirez, Family Medicine, Encounter Date: 08/18/2024 Results Created Date Observation Date Name Description Value Unit Range Abnormal Flag Note LastModifiedBy Organization Detail LastModifiedTime 06/13/2006/17/2022 URINE CULTU RE,CO MPREH ENSIV E urine culture,comp rehensive Final report abnormal Not Available [facility] ([facility]) [address], [place], [address], 06/18/2022 03:07:19 06/13/20 22 06/17/2022 URINE CULTU RE,CO MPREH ENSIV E result 1 Escher ichia coli abnormal Cefaz sarkis <=4 ug/mL Cefaz sarkis with an JUAN <=16 predi cts susce ptibi lity to the oral agent s cefac kamryn, cefdi nevaeh, cefpo doxim e, cefpr ozil, cefur oxime , cepha lexin , and lorac arbef when used for thera py of uncom plica samanta urina ry tract infec tions due to E. coli, Klebs iella pneum oniae , and Prote us mirab ilis. Great er than 100,0 00 colon y formi ng units per mL Not Available [facility] ([facility]) [address] [facility], [place], [address], 06/18/2022 03:07:19 06/13/20 22 06/17/2022 URINE CULTU RE,CO MPREH ENSIV E antimicrobia l susceptibili ty Commen t S = Susce ptibl e; I = Inter media te; R = Resis tant P = Posit jazmyne; N = Negat jazmyne MICS are expre ssed in micro grams per mL Antib iotic RSLT# 1 RSLT# 2 RSLT# 3 RSLT# 4 Amoxi cilli n/Cla vulan ic Acid S Ampic illin S Cefep eliane S Ceftr iaxon e S Cefur oxime S Cipro floxa aurora S Ertap enem S Genta micin S Imipe nem S Levof loxac in S Merop enem S Nitro furan toin S Piper acill in/Ta zobac abreu S Tetra cycli ne S Tobra mycin S Trime thopr im/Melgar lfa S Not Available [facility] ([facility]) [address] [facility], [place], [address], 06/18/2022 03:07:19 06/13/20 22 06/13/2022 urina lysis , dipst ick Leukocytes Modera te Not Available In-Office Order Internal Use Only DO Not Attach Compendium DO Not Attach Compendium, Do Not Delete/merge, [id number] 06/13/2022 11:05:04 06/13/20 22 06/13/2022 urina lysis , dipst ick Nitrite negati ve Not Available In-Office Order Internal Use Only DO Not Attach Compendium DO Not Attach Compendium, Do Not Delete/merge, [id number] 06/13/2022 11:05:04 06/13/20 22 06/13/2022 urina lysis , dipst ick Urobilinogen .2 Not Available In-Of fice Order Internal Use Only DO Not Attach Compendium DO Not Attach Compendium, Do Not Delete/merge, [id number] 06/13/2022 11:05:04 06/13/20 22 06/13/2022 urina lysis , dipst ick Protein Trace Not Available In-Office Order Internal Use Only DO Not Attach Compendium DO Not Attach Compendium, Do Not Delete/merge, [id number] 06/13/2022 11:05:04 06/13/20 22 06/13/2022 urina lysis , dipst ick pH 6.0 Not Available In-Office Order Internal Use Only DO Not Attach Compendium DO Not Attach Compendium, Do Not Delete/merge, 06/13/2022 11:05:04 06/13/20 22 06/13/2022 urina lysis , dipst ick Blood Small Not Available In-Office Order Internal Use Only DO Not Attach Compendium DO Not Attach Compendium, Do Not Delete/merge, [id number] 06/13/2022 11:05:04 06/13/20 22 06/13/2022 urina lysis , dipst ick Specific [place] 1.020 Not Available In-Off ice Order Internal Use Only DO Not Attach Compendium DO Not Attach Compendium, Do Not Delete/merge, [id number] 06/13/2022 11:05:04 06/13/20 22 06/13/2022 urina lysis , dipst ick Ketone Negati ve Not Available In-Office Order Internal Use Only DO Not Attach Compendium DO Not Attach Compendium, Do Not Delete/merge, [id number] 06/13/2022 11:05:04 06/13/20 22 06/13/2022 urina lysis , dipst ick Bilirubin Negati ve Not Available In-Office Order Internal Use Only DO Not Attach Compendium DO Not Attach Compendium, Do Not Delete/merge, [id number] 06/13/2022 11:05:04 06/13/20 22 06/13/2022 urina lysis , dipst ick Glucose Negati ve Not Available In-Office Order Internal Use Only DO Not Attach Compendium DO Not Attach Compendium, Do Not Delete/merge, 06/13/2022 11:05:04 06/13/20 22 06/13/2022 urina lysis , dipst ick Appearance Clear Not Available In-Offi ce Order Internal Use Only DO Not Attach Compendium DO Not Attach Compendium, Do Not Delete/merge, 06/13/2022 11:05:04 06/13/20 22 06/13/2022 urina lysis , dipst ick Color Yellow Not Available In-Office Order Internal Use Only DO Not Attach Compendium DO Not Attach Compendium, Do Not Delete/merge, 06/13/2022 11:05:04 06/18/20 23 06/19/2023 ANTIN UCLEA R AB MULTI PLEX RFX 9 JEREMY direct NEGATI VE negati ve Not Available [facility] ([facility]) [address] [place], [address], 06/19/2023 16:13:44 06/18/20 23 06/19/2023 CMP14 (REFL EX HGB A1C) glucose 116 mg/dL 70-99 above high normal Not Available [facility] ([facility]) [address] [place], [address], 06/19/2023 16:13:45 06/18/20 23 06/19/2023 CMP14 (REFL EX HGB A1C) BUN 18 mg/dL 8-27 Not Available [facility] ([facility]) [address] [place], [address], 06/19/2023 16:13:45 06/18/20 23 06/19/2023 CMP14 (REFL EX HGB A1C) creatinine 0.96 mg/dL 0.57-1 .00 Not Available [facility] ([facility]) [address] [place], [address], 06/19/2023 16:13:45 06/18/20 23 06/19/2023 CMP14 (REFL EX HGB A1C) eGFR 65 mL/mi n/1.7 3 >59 Not Available [facility] ([facility]) [address] [place], [address], 06/19/2023 16:13:45 06/18/20 23 06/19/2023 CMP14 (REFL EX HGB A1C) BUN/creatini ne ratio 19 12-28 Not Available [facility] ([facility]) [address] [place], [address], 06/19/2023 16:13:45 06/18/20 23 06/19/2023 CMP14 (REFL EX HGB A1C) sodium 143 mmol/ L 134-14 4 Not Available [facility] ([facility]) [address] [place], [address], 06/19/2023 16:13:45 06/18/20 23 06/19/2023 CMP14 (REFL EX HGB A1C) potassium 4.7 mmol/ L 3.5-5. 2 Not Available [facility] ([facility]) [address] [place], [address], 06/19/2023 16:13:45 06/18/20 23 06/19/2023 CMP14 (REFL EX HGB A1C) chloride 104 mmol/ L 96-106 Not Available [facility] ([facility]) [address] [place], [address], 06/19/2023 16:13:45 06/18/20 23 06/19/2023 CMP14 (REFL EX HGB A1C) carbon dioxide, total 25 mmol/ L 20-29 Not Available [facility] ([facility]) [address] [place], [address], 06/19/2023 16:13:45 06/18/20 23 06/19/2023 CMP14 (REFL EX HGB A1C) calcium 10.0 mg/dL 8.7-10 .3 Not Available [facility] ([facility]) [address] [place], [address], 06/19/2023 16:13:45 06/18/20 23 06/19/2023 CMP14 (REFL EX HGB A1C) protein, total 7.2 g/dL 6.0-8. 5 Not Available [facility] ([facility]) [address] [place], [address], 06/19/2023 16:13:45 06/18/20 23 06/19/2023 CMP14 (REFL EX HGB A1C) albumin 4.9 g/dL 3.9-4. 9 Not Available [facility] ([facility]) [address] [place], [address], 06/19/2023 16:13:45 06/18/20 23 06/19/2023 CMP14 (REFL EX HGB A1C) globulin, total 2.3 g/dL 1.5-4. 5 Not Available [facility] ([facility]) [address] [place], [address], 06/19/2023 16:13:45 06/18/20 23 06/19/2023 CMP14 (REFL EX HGB A1C) A/G ratio 2.1 1.2-2. 2 Not Available [facility] ([facility]) [address] [place], [address], 06/19/2023 16:13:45 06/18/20 23 06/19/2023 CMP14 (REFL EX HGB A1C) bilirubin, total 0.4 mg/dL 0.0-1. 2 Not Available [facility] ([facility]) [address] [place], [address], 06/19/2023 16:13:45 06/18/20 23 06/19/2023 CMP14 (REFL EX HGB A1C) alkaline phosphatase 81 IU/L 44-121 Not Available [facility] ([facility]) [address] [place], [address], 06/19/2023 16:13:45 06/18/20 23 06/19/2023 CMP14 (REFL EX HGB A1C) AST (SGOT) 25 IU/L 0-40 Not Available [facility] ([facility]) [address] [place], [address], 06/19/2023 16:13:45 06/18/20 23 06/19/2023 CMP14 (REFL EX HGB A1C) ALT (SGPT) 28 IU/L 0-32 Not Available [facility] ([facility]) [address] [place], [address], 06/19/2023 16:13:45 06/18/20 23 06/19/2023 TSH RFX ON ABNOR MAL TO FREE T4 TSH 2.170 uIU/m L 0.450- 4.500 Not Available [facility] ([facility]) [address] [place], [address], 06/19/2023 16:13:45 06/18/20 23 06/19/2023 SEDIM ENTAT ION RATE- WESTE RGREN sedimentatio n rate-westerg og 2 mm/HR 0-40 Not Available [facility] ([facility]) [address] [place], [address], 06/19/2023 16:13:46 06/18/20 23 06/19/2023 RHEUM ATOID FACTO R (RF) rheumatoid factor (rf) <10.0 IU/mL <14.0 Not Available [facility] ([facility]) [address] [place], [address], 06/19/2023 16:13:47 06/18/20 23 06/19/2023 C-OSBALDO CTIVE PROTE IN, QUANT C-reactive protein, quant 2 mg/L 0-10 Not Available [facility] ([facility]) [address] [facility], [place], [address], 06/19/2023 16:13:47 06/18/20 23 06/19/2023 VITAM IN D, 25-HY DROXY vitamin D, 25-hydroxy 36.1 NG/mL 30.0-1 00.0 Vitam in D defic iency has been defin ed by the Insti tute of Medic ine and an Endoc rine Socie ty pract ice guide line as a level of serum 25-OH vitam in D less than 20 ng/mL (1,2) . The Endoc rine Socie ty went on to furth er defin e vitam in D insuf ficie ncy as a level betwe en 21 and 29 ng/mL (2). 1. IOM (Inst itute of Medic ine). 2009. Dieta ry refer ence intak es for calci um and D. Anand mayo [place]: [facility] Press . 2. Karen aiken [place], Greta edward [place], [place], et al. Evalu ation , treat ment, and preve ntion of vitam in D defic iency : an Endoc rine Socie ty clini rohini pract ice guide line. EM. 2010; 96(7) :1911 -30. Not Available [facility] ([facility]) [address] [facility], [place], [address], 06/19/2023 16:13:48 06/18/20 23 06/19/2023 HB A1C hemoglobin A1C 5.8 % 4.8-5. 6 above high normal Predi abete s: 5.7 - 6.4 Diabe rosina: >6.4 Glyce juan contr ol for adult s with diabe rosina: <7.0 Not Available [facility] ([facility]) [address] [facility], [place], [address], 06/19/2023 16:13:48 10/14/20 23 10/15/2023 COMP. METAB OLIC PANEL (14) glucose 110 mg/dL 70-99 above high normal Not Available [facility] ([facility]) [address] [place], [address], 10/15/2023 04:10:09 10/14/20 23 10/15/2023 COMP. METAB OLIC PANEL (14) BUN 18 mg/dL 8-27 Not Available [facility] ([facility]) [address] [place], [address], 10/15/2023 04:10:09 10/14/20 23 10/15/2023 COMP. METAB OLIC PANEL (14) creatinine 0.89 mg/dL 0.57-1 .00 Not Available [facility] ([facility]) [address] [place], [address], 10/15/2023 04:10:09 10/14/20 23 10/15/2023 COMP. METAB OLIC PANEL (14) eGFR 71 mL/mi n/1.7 3 >59 Not Available [facility] ([facility]) [address] [place], [address], 10/15/2023 04:10:09 10/14/20 23 10/15/2023 COMP. METAB OLIC PANEL (14) BUN/creatini ne ratio 20 12-28 Not Available [facility] ([facility]) [address] [place], [address], 10/15/2023 04:10:09 10/14/20 23 10/15/2023 COMP. METAB OLIC PANEL (14) sodium 140 mmol/ L 134-14 4 Not Available [facility] ([facility]) [address] [place], [address], 10/15/2023 04:10:09 10/14/20 23 10/15/2023 COMP. METAB OLIC PANEL (14) potassium 4.3 mmol/ L 3.5-5. 2 Not Available [facility] ([facility]) [address] [facility] [place], [address], 10/15/2023 04:10:09 10/14/20 23 10/15/2023 COMP. METAB OLIC PANEL (14) chloride 100 mmol/ L 96-106 Not Available [facility] ([facility]) [address] [facility], [place], [address], 10/15/2023 04:10:09 10/14/20 23 10/15/2023 COMP. METAB OLIC PANEL (14) carbon dioxide, total 25 mmol/ L 20-29 Not Available [facility] ([facility]) [address] [facility], [place], [address], 10/15/2023 04:10:09 10/14/20 23 10/15/2023 COMP. METAB OLIC PANEL (14) calcium 9.9 mg/dL 8.7-10 .3 Not Available [facility] ([facility]) [address] [facility], [place], [address], 10/15/2023 04:10:09 10/14/20 23 10/15/2023 COMP. METAB OLIC PANEL (14) protein, total 6.9 g/dL 6.0-8. 5 Not Available [facility] ([facility]) [address] [facility], [place], [address], 10/15/2023 04:10:09 10/14/20 23 10/15/2023 COMP. METAB OLIC PANEL (14) albumin 4.8 g/dL 3.9-4. 9 Not Available [facility] ([facility]) [address] [place], [address], 10/15/2023 04:10:09 10/14/20 23 10/15/2023 COMP. METAB OLIC PANEL (14) globulin, total 2.1 g/dL 1.5-4. 5 Not Available [facility] ([facility]) [address] [facility], [place], [address], 10/15/2023 04:10:09 10/14/20 23 10/15/2023 COMP. METAB OLIC PANEL (14) A/G ratio 2.3 1.2-2. 2 above high normal Not Available [facility] ([facility]) [address] [facility] [place], [address], 10/15/2023 04:10:09 10/14/20 23 10/15/2023 COMP. METAB OLIC PANEL (14) bilirubin, total 0.3 mg/dL 0.0-1. 2 Not Available [facility] ([facility]) [address] [facility], [place], [address], 10/15/2023 04:10:09 10/14/20 23 10/15/2023 COMP. METAB OLIC PANEL (14) alkaline phosphatase 79 IU/L 44-121 Not Available [facility] ([facility]) [address] [facility], [place], [address], 10/15/2023 04:10:09 10/14/20 23 10/15/2023 COMP. METAB OLIC PANEL (14) AST (SGOT) 21 IU/L 0-40 Not Available [facility] ([facility]) [address] [place], [address], 10/15/2023 04:10:09 10/14/20 23 10/15/2023 COMP. METAB OLIC PANEL (14) ALT (SGPT) 19 IU/L 0-32 Not Available [facility] ([facility]) [address] [place], [address], 10/15/2023 04:10:09 10/14/20 23 10/15/2023 CBC WITH DIFFE RENTI AL/PL ATELE T WBC 6.8 x10e3 /uL 3.4-10 .8 Not Available [facility] ([facility]) [address] [facility], [place], [address], 10/15/2023 04:10:10 10/14/20 23 10/15/2023 CBC WITH DIFFE RENTI AL/PL ATELE T RBC 4.59 x10e6 /uL 3.77-5 .28 Not Available [facility] ([facility]) [address] [facility], [place], [address], 10/15/2023 04:10:10 10/14/20 23 10/15/2023 CBC WITH DIFFE RENTI AL/PL ATELE T hemoglobin 13.7 g/dL 11.1-1 5.9 Not Available [facility] ([facility]) [address] [facility], [place], [address], 10/15/2023 04:10:10 10/14/20 23 10/15/2023 CBC WITH DIFFE RENTI AL/PL ATELE T hematocrit 40.6 % 34.0-4 6.6 Not Available [facility] ([facility]) [address] [facility], [place], [address], 10/15/2023 04:10:10 10/14/20 23 10/15/2023 CBC WITH DIFFE RENTI AL/PL ATELE T MCV 89 fL 79-97 Not Available [facility] ([facility]) [address] [facility], [place], [address], 10/15/2023 04:10:10 10/14/20 23 10/15/2023 CBC WITH DIFFE RENTI AL/PL ATELE T MCH 29.8 pg 26.6-3 3.0 Not Available [facility] ([facility]) [address] [place], [address], 10/15/2023 04:10:10 10/14/20 23 10/15/2023 CBC WITH DIFFE RENTI AL/PL ATELE T MCHC 33.7 g/dL 31.5-3 5.7 Not Available [facility] ([facility]) [address] [facility], [place], [address], 10/15/2023 04:10:10 10/14/20 23 10/15/2023 CBC WITH DIFFE RENTI AL/PL ATELE T RDW 12.4 % 11.7-1 5.4 Not Available [facility] ([facility]) [address] [facility], [place], [address], 10/15/2023 04:10:10 10/14/20 23 10/15/2023 CBC WITH DIFFE RENTI AL/PL ATELE T platelets 218 x10e3 /uL 150-45 0 Not Available [facility] ([facility]) [address] [facility], [place], [address], 10/15/2023 04:10:10 10/14/20 23 10/15/2023 CBC WITH DIFFE RENTI AL/PL ATELE T neutrophils 59 % notest ab. Not Available [facility] ([facility]) [address] [facility], [place], [address], 10/15/2023 04:10:10 10/14/20 23 10/15/2023 CBC WITH DIFFE RENTI AL/PL ATELE T lymphs 28 % notest ab. Not Available [facility] ([facility]) [address] [facility], [place], [address], 10/15/2023 04:10:10 10/14/20 23 10/15/2023 CBC WITH DIFFE RENTI AL/PL ATELE T monocytes 9 % notest ab. Not Available [facility] ([facility]) [address] [facility], [place], [address], 10/15/2023 04:10:10 10/14/20 23 10/15/2023 CBC WITH DIFFE RENTI AL/PL ATELE T eos 3 % notest ab. Not Available [facility] ([facility]) [address] [facility], [place], [address], 10/15/2023 04:10:10 10/14/20 23 10/15/2023 CBC WITH DIFFE RENTI AL/PL ATELE T basos 1 % notest ab. Not Available [facility] ([facility]) [address] [facility], [place], [address], 10/15/2023 04:10:10 10/14/20 23 10/15/2023 CBC WITH DIFFE RENTI AL/PL ATELE T neutrophils (absolute) 4.1 x10e3 /uL 1.4-7. 0 Not Available [facility] ([facility]) [address] [place], [address], 10/15/2023 04:10:10 10/14/20 23 10/15/2023 CBC WITH DIFFE RENTI AL/PL ATELE T lymphs (absolute) 1.9 x10e3 /uL 0.7-3. 1 Not Available [facility] ([facility]) [address] [place], [address], 10/15/2023 04:10:10 10/14/20 23 10/15/2023 CBC WITH DIFFE RENTI AL/PL ATELE T monocytes(ab solute) 0.6 x10e3 /uL 0.1-0. 9 Not Available [facility] ([facility]) [address] [place], [address], 10/15/2023 04:10:10 10/14/20 23 10/15/2023 CBC WITH DIFFE RENTI AL/PL ATELE T eos (absolute) 0.2 x10e3 /uL 0.0-0. 4 Not Available [facility] ([facility]) [address] [place], [address], 10/15/2023 04:10:10 10/14/20 23 10/15/2023 CBC WITH DIFFE RENTI AL/PL ATELE T baso (absolute) 0.1 x10e3 /uL 0.0-0. 2 Not Available [facility] ([facility]) [address] [facility], [place], [address], 10/15/2023 04:10:10 10/14/20 23 10/15/2023 CBC WITH DIFFE RENTI AL/PL ATELE T immature granulocytes 0 % notest ab. Not Available [facility] ([facility]) [address] [facility], [place], [address], 10/15/2023 04:10:10 10/14/20 23 10/15/2023 CBC WITH DIFFE RENTI AL/PL ATELE T immature grans (abs) 0.0 x10e3 /uL 0.0-0. 1 Not Available [facility] ([facility]) [address] [facility], [place], [address], 10/15/2023 04:10:10 11/10/20 24 11/11/2024 LIPID PANEL WITH LDL/H DL RATIO cholesterol, total 156 mg/dL 100-19 9 Not Available [facility] ([facility]) [address] [facility], [place], [address], 11/11/2024 10:37:12 11/10/20 24 11/11/2024 LIPID PANEL WITH LDL/H DL RATIO triglyceride s 141 mg/dL 0-149 Not Available [facility] ([facility]) [address] [facility], [place], [address], 11/11/2024 10:37:12 11/10/20 24 11/11/2024 LIPID PANEL WITH LDL/H DL RATIO HDL cholesterol 51 mg/dL >39 Not Available [facility] ([facility]) [address] [facility], [place], [address], 11/11/2024 10:37:12 11/10/20 24 11/11/2024 LIPID PANEL WITH LDL/H DL RATIO VLDL cholesterol rohini 25 mg/dL 5-40 Not Available [facility] ([facility]) [address] [facility], [place], [address], 11/11/2024 10:37:12 11/10/20 24 11/11/2024 LIPID PANEL WITH LDL/H DL RATIO LDL chol calc ([facility]) 80 mg/dL 0-99 Not Available [facility] ([facility]) [address] [place], [address], 11/11/2024 10:37:12 11/10/20 24 11/11/2024 LIPID PANEL WITH LDL/H DL RATIO LDL/HDL ratio 1.6 ratio 0.0-3. 2 LDL/H DL Ratio Men Women 1/2 Avg.R isk 1.0 1.5 Avg.R isk 3.6 3.2 2X Avg.R isk 6.2 5.0 3X Avg.R isk 8.0 6.1 Not Available [facility] ([facility]) [address] [place], [address], 11/11/2024 10:37:12 11/10/20 24 11/11/2024 COMP. METAB OLIC PANEL (14) glucose 99 mg/dL 70-99 Not Available [facility] ([facility]) [address] [place], [address], 11/11/2024 10:37:13 11/10/20 24 11/11/2024 COMP. METAB OLIC PANEL (14) BUN 16 mg/dL 8-27 Not Available [facility] ([facility]) [address] [place], [address], 11/11/2024 10:37:13 11/10/20 24 11/11/2024 COMP. METAB OLIC PANEL (14) creatinine 0.80 mg/dL 0.57-1 .00 Not Available [facility] ([facility]) [address] [place], [address], 11/11/2024 10:37:13 11/10/20 24 11/11/2024 COMP. METAB OLIC PANEL (14) eGFR 80 mL/mi n/1.7 3 >59 Not Available [facility] ([facility]) [address] [facility], [place], [address], 11/11/2024 10:37:13 11/10/20 24 11/11/2024 COMP. METAB OLIC PANEL (14) BUN/creatini ne ratio 12 11- Not Available [facility] ([facility]) [address] [facility], [place], [address], 11/11/2024 10:37:13 11/10/20 24 11/11/2024 COMP. METAB OLIC PANEL (14) sodium 141 mmol/ L 134-14 4 Not Available [facility] ([facility]) [address] [facility], [place], [address], 11/11/2024 10:37:13 11/10/20 24 11/11/2024 COMP. METAB OLIC PANEL (14) potassium 4.8 mmol/ L 3.5-5. 2 Not Available [facility] ([facility]) [address] [facility], [place], [address], 11/11/2024 10:37:13 11/10/20 24 11/11/2024 COMP. METAB OLIC PANEL (14) chloride 102 mmol/ L 96-106 Not Available [facility] ([facility]) [address] [facility], [place], [address], 11/11/2024 10:37:13 11/10/20 24 11/11/2024 COMP. METAB OLIC PANEL (14) carbon dioxide, total 25 mmol/ L 20-29 Not Available [facility] ([facility]) [address] [facility], [place], [address], 11/11/2024 10:37:13 11/10/20 24 11/11/2024 COMP. METAB OLIC PANEL (14) calcium 9.9 mg/dL 8.7-10 .3 Not Available [facility] ([facility]) [address] [facility], [place], [address], 11/11/2024 10:37:13 11/10/20 24 11/11/2024 COMP. METAB OLIC PANEL (14) protein, total 7.1 g/dL 6.0-8. 5 Not Available [facility] ([facility]) [address] [facility], [place], [address], 11/11/2024 10:37:13 11/10/20 24 11/11/2024 COMP. METAB OLIC PANEL (14) albumin 4.9 g/dL 3.9-4. 9 Not Available [facility] ([facility]) [address] [facility], [place], [address], 11/11/2024 10:37:13 11/10/20 24 11/11/2024 COMP. METAB OLIC PANEL (14) globulin, total 2.2 g/dL 1.5-4. 5 Not Available [facility] ([facility]) [address] [facility], [place], [address], 11/11/2024 10:37:13 11/10/20 24 11/11/2024 COMP. METAB OLIC PANEL (14) bilirubin, total 0.3 mg/dL 0.0-1. 2 Not Available [facility] ([facility]) [address] [facility], [place], [address], 11/11/2024 10:37:13 11/10/20 24 11/11/2024 COMP. METAB OLIC PANEL (14) alkaline phosphatase 97 IU/L 44-121 Not Available [facility] ([facility]) [address] [facility], [place], [address], 11/11/2024 10:37:13 11/10/20 24 11/11/2024 COMP. METAB OLIC PANEL (14) AST (SGOT) 25 IU/L 0-40 Not Available [facility] ([facility]) [address] [facility], [place], [address], 11/11/2024 10:37:13 11/10/20 24 11/11/2024 COMP. METAB OLIC PANEL (14) ALT (SGPT) 28 IU/L 0-32 Not Available [facility] ([facility]) [address] [place], [address], 11/11/2024 10:37:13 11/10/20 24 11/11/2024 TSH RFX ON ABNOR MAL TO FREE T4 TSH 2.010 uIU/m L 0.450- 4.500 Not Available [facility] ([facility]) [address] [place], [address], 11/11/2024 10:37:15 11/10/20 24 11/11/2024 HEMOG LOBIN A1C hemoglobin A1C 5.9 % 4.8-5. 6 above high normal Predi abete s: 5.7 - 6.4 Diabe rosina: >6.4 Glyce juan contr ol for adult s with diabe rosina: <7.0 Not Available [facility] ([facility]) [address] [place], [address], 11/11/2024 10:37:16 11/10/20 24 11/11/2024 CBC WITH DIFFE RENTI AL/PL ATELE T WBC 5.6 x10e3 /uL 3.4-10 .8 Not Available [facility] ([facility]) [address] [place], [address], 11/11/2024 10:37:18 11/10/20 24 11/11/2024 CBC WITH DIFFE RENTI AL/PL ATELE T RBC 4.70 x10e6 /uL 3.77-5 .28 Not Available [facility] ([facility]) [address] [place], [address], 11/11/2024 10:37:18 11/10/20 24 11/11/2024 CBC WITH DIFFE RENTI AL/PL ATELE T hemoglobin 14.1 g/dL 11.1-1 5.9 Not Available [facility] ([facility]) [address] [place], [address], 11/11/2024 10:37:18 11/10/20 24 11/11/2024 CBC WITH DIFFE RENTI AL/PL ATELE T hematocrit 42.1 % 34.0-4 6.6 Not Available [facility] ([facility]) [address] [facility], [place], [address], 11/11/2024 10:37:18 11/10/20 24 11/11/2024 CBC WITH DIFFE RENTI AL/PL ATELE T MCV 90 fL 79-97 Not Available [facility] ([facility]) [address] [place], [address], 11/11/2024 10:37:18 11/10/20 24 11/11/2024 CBC WITH DIFFE RENTI AL/PL ATELE T MCH 30.0 pg 26.6-3 3.0 Not Available [facility] ([facility]) [address] [facility], [place], [address], 11/11/2024 10:37:18 11/10/20 24 11/11/2024 CBC WITH DIFFE RENTI AL/PL ATELE T MCHC 33.5 g/dL 31.5-3 5.7 Not Available [facility] ([facility]) [address] [place], [address], 11/11/2024 10:37:18 11/10/20 24 11/11/2024 CBC WITH DIFFE RENTI AL/PL ATELE T RDW 12.1 % 11.7-1 5.4 Not Available [facility] ([facility]) [address] [place], [address], 11/11/2024 10:37:18 11/10/20 24 11/11/2024 CBC WITH DIFFE RENTI AL/PL ATELE T platelets 251 x10e3 /uL 150-45 0 Not Available [facility] ([facility]) [address] [place], [address], 11/11/2024 10:37:18 11/10/20 24 11/11/2024 CBC WITH DIFFE RENTI AL/PL ATELE T neutrophils 58 % notest ab. Not Available [facility] ([facility]) [address], [place], [address], 11/11/2024 10:37:18 11/10/20 24 11/11/2024 CBC WITH DIFFE RENTI AL/PL ATELE T lymphs 29 % notest ab. Not Available [facility] ([facility]) [address], [place], [address], 11/11/2024 10:37:18 11/10/20 24 11/11/2024 CBC WITH DIFFE RENTI AL/PL ATELE T monocytes 9 % notest ab. Not Available [facility] ([facility]) [address], [place], [address], 11/11/2024 10:37:18 11/10/20 24 11/11/2024 CBC WITH DIFFE RENTI AL/PL ATELE T eos 3 % notest ab. Not Available [facility] ([facility]) [address] [facility], [place], [address], 11/11/2024 10:37:18 11/10/20 24 11/11/2024 CBC WITH DIFFE RENTI AL/PL ATELE T basos 1 % notest ab. Not Available [facility] ([facility]) [address] [facility], [place], [address], 11/11/2024 10:37:18 11/10/20 24 11/11/2024 CBC WITH DIFFE RENTI AL/PL ATELE T neutrophils (absolute) 3.2 x10e3 /uL 1.4-7. 0 Not Available [facility] ([facility]) [address] [facility], [place], [address], 11/11/2024 10:37:18 11/10/20 24 11/11/2024 CBC WITH DIFFE RENTI AL/PL ATELE T lymphs (absolute) 1.6 x10e3 /uL 0.7-3. 1 Not Available [facility] ([facility]) [address] [place], [address], 11/11/2024 10:37:18 11/10/20 24 11/11/2024 CBC WITH DIFFE RENTI AL/PL ATELE T monocytes(ab solute) 0.5 x10e3 /uL 0.1-0. 9 Not Available [facility] ([facility]) [address] [place], [address], 11/11/2024 10:37:18 11/10/20 24 11/11/2024 CBC WITH DIFFE RENTI AL/PL ATELE T eos (absolute) 0.2 x10e3 /uL 0.0-0. 4 Not Available [facility] ([facility]) [address] [place], [address], 11/11/2024 10:37:18 11/10/20 24 11/11/2024 CBC WITH DIFFE RENTI AL/PL ATELE T baso (absolute) 0.1 x10e3 /uL 0.0-0. 2 Not Available [facility] ([facility]) [address] [place], [address], 11/11/2024 10:37:18 11/10/20 24 11/11/2024 CBC WITH DIFFE RENTI AL/PL ATELE T immature granulocytes 0 % notest ab. Not Available [facility] ([facility]) [address] [place], [address], 11/11/2024 10:37:18 11/10/20 24 11/11/2024 CBC WITH DIFFE RENTI AL/PL ATELE T immature grans (abs) 0.0 x10e3 /uL 0.0-0. 1 Not Available [facility] ([facility]) [address] [place], [address], 11/11/2024 10:37:18 11/10/20 24 11/11/2024 VITAM IN D, 25-HY DROXY vitamin D, 25-hydroxy 29.7 NG/mL 30.0-1 00.0 below low normal Vitam in D defic iency has been defin ed by the Insti tute of Medic ine and an Endoc rine Socie ty pract ice guide line as a level of serum 25-OH vitam in D less than 20 ng/mL (1,2) . The Endoc rine Socie ty went on to furth er defin e vitam in D insuf ficie ncy as a level betwe en 21 and 29 ng/mL (2). 1. IOM (Inst itute of Medic ine). 2009. Dietmarcela ry refer ence ulysses es for calci um and D. Anand mayo [place]: The [facility] Press . 2. Karen aiken MF, Greta edward [place], [place] off-F errrenetta i [place], et al. Evalu ation , treat ment, and preve ntion of vitam in D defic iency : an Endoc rine Socie ty clini rohini pract ice guide line. JCEM. 2010; 96(7) :1911 -30. Not Available [facility] ([facility]) [address] [facility], [place], [address], 11/11/2024 10:37:20 12/29/19 25 12/30/2024 VITAM IN D, 25-HY DROXY vitamin D, 25-hydroxy 31.4 NG/mL 30.0-1 00.0 Vitam in D defic iency has been defin ed by the Insti tute of Medic ine and an Endoc rine Socie ty pract ice guide line as a level of serum 25-OH vitam in D less than 20 ng/mL (1,2) . The Endoc rine Socie ty went on to furth er defin e vitam in D insuf ficie ncy as a level betwe en 21 and 29 ng/mL (2). 1. IOM (Inst itute of Medic ine). 2009. Dieta ry refer ence intak es for calci um and D. Anand mayo [place]: The [facility] Press . 2. Karen aiken MF, Greta edward [place], [place] off[place] i [place], et al. Evalu ation , treat ment, and preve ntion of vitam in D defic iency : an Endoc rine Socie ty clini rohini pract ice guide line. JCEM. 2010; 96(7) :1911 -30. Not Available [facility] ([facility]) [address] [facility], [place], [address], 12/30/2024 07:12:24 08/08/20 22 08/08/2022 XR, ankle , 3 or more view No observ ation record ed. [facility] [address] [facility] [address], [place], [address], 08/09/2022 16:22:40 08/14/20 22 08/08/2022 DEXA, axial skele ton No observ ation record ed. [email or web address] Not Available 17:55:37 10/02/20 22 10/02/2022 cardi ac stres s test No observ ation record ed. marlee [facility] Cardiovascul[facility] Department [address] [facility] , [place], [address], 10/02/2022 14:22:31 06/05/20 23 06/04/2023 MAMMO , scree pamela, digit al, bilat eral No observ ation record ed. adri [facility] [address] [place] [address], [address], 06/05/2023 15:57:56 06/29/20 24 06/28/2024 MAMMO , scree pamela, digit al, bilat eral No observ ation record ed. adri [facility] [address] [place], [address], Ph [phone] 07/02/2024 11:57:26 08/30/20 24 08/30/2024 DEXA No observ ation record ed. BRITTNY [facility] [address] [facility] [address], [place], [address], 08/30/2024 14:20:39 Result Notes None recorded. Problems Name Problem SNOMED Code Status Onset Date Resolution Date Notes Provider Name and Address Organization Details Recorded Time Vitamin D deficienc y 12583977 Active 2018 Karissa Baker LPN [place], [place] [facility] 9 13:57:32 Prediabet es 090221252 Active 2019 Karissa Baker LPN [place] [facility] 0 16:41:05 Steatosis of liver 980813729 Active 2019 Karissa Baker L[place] [facility] 0 13:51:47 Snoring 77935458 Active 2019 Karissa Baker L[place] [facility] 0 14:10:07 Right side sciatica 69430050659 9101 Active 2020 Karissa Baker LPN [place] [facility] 1 11:08:47 Hiatal hernia 80135335 Active 2021 Hermila Porras [place] [facility] 2 11:26:44 Calcaneal spur of left foot 17838941135 9109 Active 2021 Karissa Baker L[place] [facility] 2 16:23:38 Osteopeni a 542776340 Active 2021 hips Karissa Baker LPN [place] [facility] 2 15:42:18 Hyperlipi demia 69741169 Active Geri Hughes CMA [place] [facility] 6 11:08:55 Skin problem 925547243 Active Geri Hughes CMA [place] [facility] 6 11:08:55 Seasonal allergy 657801065 Active Debo [place]rell[place] [facility] 6 14:37:53 Pain in axilla 665379143 Active Debo [place] [facility] 6 15:05:47 Cervical disc disorder 997652531 Active Geri Hughes [employer] [place] [facility] 6 11:08:55 Low back pain 161475620 Active Geri Hughes [employer] [place] [facility] 6 11:08:55 Pain in thoracic spine 696930782 Active Geri Hughes [employer] [place] [facility] 6 11:08:55 Cramp in lower limb 107185141 Active Geri Hughes [employer] [place] [facility] 6 11:08:55 Hyperchol esterolem ia 39443643 Active 2011 Not Available [facility] 7 00:35:23 Screening procedure Active 2014 Not Available [facility] 7 01:17:50 Intervert ebral disc disorder 48514471 Active 2011 Not Available [facility] 7 01:18:04 Essential hypertens ion 96898217 Active 2012 Not Available [facility] 7 01:18:04 Cystitis 49544151 Active 2014 Not Available [facility] 7 01:18:04 Blood in urine 82586174 Completed 201408/19/2017 Not Available [facility] 7 01:18:04 Acute upper respirato ry infection 43911902 Active 2013 Not Available [facility] 7 01:18:04 Disorder of skin and/or subcutane ous tissue 72121743 Active 2013 Not Available [facility] 7 01:18:04 Fever 277803104 Active 2013 Not Available [facility] 7 01:18:04 Celluliti s and abscess of trunk 131095631 Active 2013 Not Available [facility] 7 01:18:04 Disorder of hair AND/OR hair follicle Active 2013 Not Available [facility] 7 01:18:04 Blood in urine 62214067 Active 2012 Not Available [facility] 7 01:18:04 Osteoarth ritis 519914537 Active 2011 Not Available [facility] 7 01:18:04 Knee pain Active 2011 Not Available [facility] 7 01:18:04 Specializ ed medical examinati on Active 2011 Not Available [facility] 7 01:18:04 Acute serous otitis media of right ear 72191345041 54098 Active 2015 Not Available [facility] 7 01:18:04 Mixed hyperlipi demia 226190381 Active 2014 Not Available [facility] 7 01:18:04 Spinal stenosis in cervical region 21939548 Active 2012 Not Available [facility] 7 01:18:04 Problem Notes None recorded. Procedures Surgical History Date Name Laterality Status Provider Name and Address Organization Details Recorded Time 08/16/20 24 colonoscopy completed Henna Contreras MA [facility] 08/18/2024 10:55:37 06/28/20 24 Date of Last Mammogram completed Henna Contreras MA [facility] 08/18/2024 10:54:46 08/26/20 23 procedure on ankle completed Henna Contreras MA [facility] 08/18/2024 10:56:25 10/02/20 20 Coronary Artery Stent completed Karissa Baker LPN [facility] 11/23/2020 15:56:34 Tonsillectomy completed Debo Orellana [facility] 03/29/2016 14:39:21 Cholecystectomy completed Debo Orellana [place] - [facility] 03/29/2016 14:39:21 Other completed Debo Orellana [place] - [facility] 03/29/2016 14:39:21 Imaging Results Imaging Date Name Status LastModified by Organiz [facility] Details LastModified Time 08/08/2022 XR, ankle, 3 or more view completed [facility] [address] [place] [address] [address], [place], [address], 08/09/2022 16:22:40 08/08/2022 DEXA, axial skeleton completed [facility] Information not available 08/19/2022 17:55:37 10/02/2022 cardiac stress test completed marlee [facility] Cardiovascular Department [address] [place], [address], 10/02/2022 14:22:31 06/04/2023 MAMMO, screening, digital, bilateral completed [email or web address] [address] [place], [address], 06/05/2023 15:57:56 06/28/2024 MAMMO, screening, digital, bilateral completed [email or web address] [facility] Medicine [facility] [address] [place], [address], Ph [phone] 07/02/2024 11:57:26 08/30/2024 DEXA completed BRITTNY [facility] [address] [address], [place], [address], 08/30/2024 14:20:39 Procedure Notes None recorded. Medical Equipment None Reported. Allergies Allergen ID Allergen Name Allergen Category Reaction Reaction Severity Criticality Documentation Date Start Date Code Code System Note Provider Name and Address Organization Details Recorded Time 959061 Product containin g penicilli n (product) medicatio n other Not available Not available 09/30/20172011 16207 8001 SNOMED React ion: unkno wn; Not Available Not Available Not Available 192514 ALLERGENI C EXTRACT, RAGWEED STOCK POLLEN medicatio n Not available Not available Not available 09/30/20172011 15630 4 RxNorm Not Available Not Available Not Available 672703 hydrochlo rothiazid e medicatio n rash mild Not available 08/18/2024 5487 RxNorm Not Available Not Available Not Available 14656 penicilli n V Not available Not available Not available Not available 03/29/2016 7984 RxNorm Not Available Not Available Not Available 70481 amoxicill in medicatio n Not available Not available Not available 03/29/2016 723 RxNorm Not Available Not Available Not Available 88138 Substance with sulfonami de structure and antibacte rial mechanism of action (substanc e) medicatio n Not available Not available Not available 03/29/2016 18970 8003 SNOMED Not Available Not Available Not Available 21019 Lipitor medicatio n other severe Not available 03/29/2016 62433 5 RxNorm LEG CRAMP S Not Available Not Available Not Available 53262 Pyridium medicatio n Not available Not available Not available 03/29/2016 8998 RxNorm Not Available Not Available Not Available 89536 Crestor medicatio n other moderate Not available 08/30/2016 38942 4 RxNorm LEG CRAMP S Not Available Not Available Not Available Medications Name Sig Start Date Stop Date Status Note LastModified by Organization Details LastModified Time cyclobenz aprine 10 mg tablet Take 1 tablet 3 times a day by oral route as needed for 10 days. 06/05 completed Not Available Not Available Not Available azithromy aurora 250 mg tablet TAKE 2 TABLETS BY MOUTH FOR 1 DAY THEN TAKE 1 TABLET BY MOUTH DAILY FOR 4 DAYS DIRECTED 08/18 completed Not Available Not Available Not Available Nystop 100,000 unit/gram topical powder 09/18 completed Not Available Not Available Not Available prednison e 20 mg tablet TAKE 2 TABLETS BY MOUTH EVERY DAY FOR 5 DAYS 08/18 completed Not Available Not Available Not Available clobetaso l 0.05 % topical cream clobetas ol 0.05 % topical cream; 1 Applicat ion; TOP; BID 11/06 completed Not Available Not Available Not Available triamcino lone acetonide 0.1 % topical cream APPLY A THIN LAYER TO THE LEFT FOOT, GREAT TOE BY TOPICAL ROUTE 2 TIMES PER DAY 09/18 completed Not Available Not Available Not Available ciclopiro x 8 % topical solution active Not Available Not Available Not Available Mobic 15 mg tablet Mobic 15 mg Tab; 1 Tablet(s ); PO; QD; UOM: Tablet 12/16 completed Not Available Not Available Not Available pravastat in 80 mg tablet Take 80 mg every day by oral route as directed for 30 days. 05/14 completed Not Available Not Available Not Available ciproflox acin 0.3 % eye drops 06/12 completed Not Available Not Available Not Available benzonata te 100 mg capsule 11/06 completed Not Available Not Available Not Available triamcino lone acetonide 40 mg/mL suspensio n for injection Take 60 mg every day by injectio n route as directed for 1 day. 06/05 completed Not Available Not Available Not Available cephalexi n 500 mg capsule TK 1 C PO Q 12 H FOR 10 DAYS 06/05 completed Not Available Not Available Not Available tacrolimu s 0.1 % topical ointment 05/14 completed Not Available Not Available Not Available Cipro 500 mg tablet Take 1 tablet every 12 hours by oral route as directed for 7 days. 06/18 completed Not Available Not Available Not Available clotrimaz ole-betam ethasone 1 %-0.05 % topical cream APPLY TO THE AFFECTED AND SURROUND ING AREAS OF SKIN BY TOPICAL ROUTE 2 TIMES PER DAY IN THE MORNING AND EVENING FOR 2 WEEKS 01/17 completed Not Available Not Available Not Available hydroxyzi ne HCl 25 mg tablet Take 1 tablet 3 times a day by oral route as needed. 09/18 completed Not Available Not Available Not Available Baby Aspirin 81 mg chewable tablet Chew 1 tablet every day by oral route. active CArdio Not Available Not Available No t Available mupirocin 2 % topical ointment APPLY A SMALL AMOUNT TO THE AFFECTED AREA BY TOPICAL ROUTE 3 TIMES PER DAY active Not Available Not Available No t Available ergocalci ferol (vitamin D2) 1,250 mcg (50,000 unit) capsule Take 1 capsule by mouth ONCE WEEKLY for 8 weeks then recheck levels on week 9 09/18 completed Not Available Not Available Not Available azelastin e 137 mcg (0.1 %) nasal spray active Not Available Not Available Not Available cefuroxim e axetil 500 mg tablet 06/12 completed Not Available Not Available Not Available Dyazide 37.5 mg-25 mg capsule Dyazide 37.5 mg-25 mg Cap; 1 Capsule( s); PO; QD; UOM: Capsule 09/25 completed Not Available Not Available Not Available albuterol sulfate HFA 90 mcg/actua tion aerosol inhaler INHALE 2 PUFFS BY MOUTH EVERY 4 TO 6 HOURS NEEDED 06/18 completed Not Available Not Available Not Available fluticaso ne propionat e 50 mcg/actua tion nasal spray,martinez pension 09/18 completed Not Available Not Available Not Available doxycycli ne hyclate 100 mg tablet 06/12 completed Not Available Not Available Not Available cranberry 500 mg capsule Take by oral route. active Not Available Not Available No t Available Bactrim DS 800 mg-160 mg tablet Bactrim DS 800 mg-160 mg tablet; 1 Tablet(s ); PO; BID; 14 days; Qty: 28 [ 014 - 11/24/2014 ]; UOM: Tablet 11/24 completed Not Available Not Available Not Available ezetimibe 10 mg tablet Take 1 tablet every day by oral route. active Not Available Not Available No t Available Crestor 5 mg tablet Crestor 5 mg Tab; 1 Tablet(s ); PO; QD; UOM: Tablet 09/25 completed Not Available Not Available Not Available nitrofura ntoin monohydra te/macroc rystals 100 mg capsule Take 1 capsule twice a day by oral route as directed for 5 days. 06/05 completed Not Available Not Available Not Available fenofibra te 160 mg tablet TAKE 1 TABLET BY MOUTH ONCE A DAY active Not Available Not Available No t Available Vitamin D3 5000 IU daily active Not Available Not Available No t Available Calcium 600 + D(3) 1 tab QD active OTC Not Available Not Available Not Available Gavilyte- C 240 gram-22.7 2 gram-6.72 gram-5.84 gram oral solution 08/18 completed Not Available Not Available Not Available blood pressure test kit-large cuff 06/18 completed Not Available Not Available Not Available Probiotic active Not Available Not Ana ilable Not Available Brilinta 90 mg tablet Take 1 tablet twice a day by oral route. 06/18 completed Will be stopping when out Not Available Not Available Not Available vitamin E mixed 800 unit capsule Take 1 capsule every day by oral route. 2019 active [facility] 2 - eye vitamin Not Available Not Available Not Available Repatha SureClick 140 mg/mL subcutane ous pen injector 06/05 completed Not Available Not Available Not Available Fluvirin 6791-6752 45 mcg (15 mcg x 3)/0.5 mL intramusc ular suspensio n 06/12 completed Not Available Not Available Not Available Fish Oil 1,000 mg (120 mg-180 mg) capsule Take 1 capsule twice a day by oral route around the clock for 30 days. 09/18 completed Not Available Not Available Not Available Flucelvax Quad (PF) 60 mcg (15 mcg x 4)/0.5 mL IM syringe 06/12 completed Not Available Not Available Not Available Flucelvax Quad 60 mcg (15 mcg x 4)/0.5 mL IM suspensio n 11/06 completed Not Available Not Available Not Available Flucelvax Quad (PF) 60 mcg (15 mcg x 4)/0.5 mL IM syringe 06/12 completed Not Available Not Available Not Available Flucelvax Quad (PF) 60 mcg (15 mcg x 4)/0.5 mL IM syringe 09/18 completed Not Available Not Available Not Available Vitals Date Recorded Body height Body mass index (BMI) Body weight Oxygen saturation Oxygen saturation in Arterial blood by Pulse oximetry Heart rate Body temperature Systolic blood pressure Diastolic blood pressure Provider Name and Address Organization Details Last Updated DateTime 2 167.64 cm 31.2 kg/m2 04876.3 3 g 99 % 99 % 77 /min 97.7 [degF] 118 mm[Hg] 70 mm[Hg] Hermila Porras MA [place] [facility] 2 11:05:29 Date Recorded Body height Body mass index (BMI) Body weight Oxygen saturation Oxygen saturation in Arterial blood by Pulse oximetry Pain severity - 0-10 verbal numeric rating [Score] - Reported Heart rate Body temperature Systolic blood pressure Diastolic blood pressure Provider Name and Address Organization Details Last Updated DateTime 3 167.64 cm 31.8 kg/m2 64584.7 g 99 % 99 % 2 78 /min 97.8 [degF] 133 mm[Hg] 79 mm[Hg] Henna Contreras MA [place] - [facility] 3 10:18:49 Date Recorded Body height Body mass index (BMI) Body weight Oxygen saturation Oxygen saturation in Arterial blood by Pulse oximetry Pain severity - 0-10 verbal numeric rating [Score] - Reported Heart rate Body temperature Systolic blood pressure Diastolic blood pressure Provider Name and Address Organization Details Last Updated DateTime 4 167.64 cm 31.5 kg/m2 31792.5 1 g 99 % 99 % 8 94 /min 98.4 [degF] 134 mm[Hg] 88 mm[Hg] Henna Contreras MA [facility] 4 16:36:32 Date Recorded Body height Body mass index (BMI) Body weight Oxygen saturation Oxygen saturation in Arterial blood by Pulse oximetry Pain severity - 0-10 verbal numeric rating [Score] - Reported Heart rate Body temperature Systolic blood pressure Diastolic blood pressure Provider Name and Address Organization Details Last Updated DateTime 4 167.64 cm 31 kg/m2 64647.7 4 g 99 % 99 % 0 78 /min 97.2 [degF] 148 mm[Hg] 83 mm[Hg] Henna Contreras MA [facility] 4 10:49:17 Social History Question Answer Notes LastModified by Organizat ion Details LastModified Time Tobacco Smoking Status [facility]2016 14:42:20 What Is Your Level Of Alcohol Consumption? Occasional Information not available 06/18/2023 What Is Your Level Of Caffeine Consumption? Moderate Information not available 06/18/2023 In The 14 Days Before Symptom Onset, Have You Had Close Contact With A Laboratory-confirm ed COVID-19 While That Case Was Ill? No Information n ot available 06/05/2022 In The 14 Days Before Symptom Onset, Have You Had Close Contact With A Person Who Is Under Investigation For COVID-19 While That Person Was Ill? No Information not available 06/05/2022 Have You Been To An Area Known To Be High Risk For COVID-19? No Information not available 06/05/2022 Are You Currently Employed? No Information not available 06/05/2022 Are There Any Guns Present In Your Home? No Information not available 06/05/2022 What Was The Date Of Your Most Recent Tobacco Screening? 08/18/2024 Information not available 08/18/2024 Do You Use Your Seat Belt Or Car Seat Routinely? Yes Information not available 06/05/2022 Do You Have Smoke And Carbon Monoxide Detectors In Your Home? Yes Information not available 06/05/2022 Are You Passively Exposed To Smoke? No Information no t available 06/05/2022 Do You Feel Stressed (tense, Restless, Nervous, Or Anxious, Or Unable To Sleep At Night)? NS3197-1 Information not available 06/05/2022 Do You Use Any Illicit Or Recreational Drugs? No Information not available 06/05/2022 Do You Use Sunscreen Routinely? Yes Information not available 06/05/2022 Has Tobacco Cessation Counseling Been Provided? No Information not available 06/05/2022 Do You Or Have You Ever Used Any Other Forms Of Tobacco Or Nicotine? No Information not available 06/05/2022 Sex: Unknown Functional Status None recorded. Mental Status None recorded. Family History Relationship Description Onset Age of this Age Resolved Age Notes LastModified by Organization Details LastModified Time Mother Coronary arterioscler osis awisema Not available 2015 16:31:04 Mother Diabetes mellitus awisema Not available 2015 16:31:04 Mother Heart disease awisema Not available 2015 16:31:04 Mother Hypertensive disorder awisema Not available 2015 16:31:04 Mother Hypercholest erolemia awisema Not available 2015 16:31:04 Mother Kidney disease awisema Not available 2015 16:31:04 Mother Osteoporosis awisema Not availa ble 08/30/2016 16:31:04 Mother Malignant neoplasm of urinary bladder awisema Not available 2015 16:31:04 Father Coronary arterioscler osis awisema Not available 2015 16:31:04 Father Diabetes mellitus awisema Not available 2015 16:31:04 Father Hypertensive disorder awisema Not available 2015 16:31:04 Father Hypercholest erolemia awisema Not available 2015 16:31:04 Notes:MOTHER HAS BLADDER CAN CER Medical History Condition Response Coronary Artery Disease N Other N High Blood Pressure N Atrial Fibrillation N Thyroid Problems N Kidney or Bladder Problems N GI Problems N Depression N COPD N Blood Clots N Skin Problems Y Anemia N Heart Attack (ID) N Diabetes N Anxiety Disorder N Muscle, Joint, or Bone Problems N Seizures/Epilepsy N Arthritis Y Acid Reflux (GERD) N Cancer N Stroke N Asthma N Allergies Y ADHD N High Cholesterol Y Hepatitis N Liver Disease N Headaches N Osteoporosis N Heart Failure N Gynecological History Statement/Question Response Menses Monthly N If Post Menopausal, Age at Menopause 56 Age at Menarche 13 Current Control Method None Date of Last Mammogram 06/28/2024 Age at First Child 27 Obstetrics History GPAL:G 3 P 3 0 0 3 Type Value Multiple Births 0 Full Term 3 Induced 0 Spontaneous 0 Premature 0 Living 3 Ectopics 0 Total 3 Immunizations Vaccine Type Date Status Note Provider Nam e and Address Organization Details Recorded Time Influenza, split virus, quadrivalent, preservative 8 completed Karissa Baker LPN null, [place] [facility] 10/30/2018 14:33:47 Influenza, split virus, quadrivalent, preservative 0 completed Iris Burger [place], [place] [facility] 09/18/2020 16:16:20 COVID-19, mRNA, LNP-S, PF, 30 mcg/0.3 mL dose 1 completed February Hernandez [place], [place] [facility] 06/10/2022 12:18:04 COVID-19, mRNA, LNP-S, PF, 100 mcg/0.5mL dose or 50 mcg/0.25mL dose 1 completed February Hernandez [place] [facility] 06/10/2022 12:18:31 COVID-19, mRNA, LNP-S, PF, 100 mcg/0.5mL dose or 50 mcg/0.25mL dose 1 completed February Hernandez [place] [facility] 06/10/2022 12:18:44 COVID-19, mRNA, LNP-S, PF, 100 mcg/0.5mL dose or 50 mcg/0.25mL dose 2 completed February Hernandez [place] [facility] 06/10/2022 12:19:01 Influenza, high-dose, quadrivalent, PF 3 completed Henna Contreras [place] [facility] 10/27/2023 09:50:01 COVID-19, mRNA, LNP-S, PF, 30 mcg/0.3 mL dose 4 completed Karissa Baker LPN [place] [facility] 08/31/2024 10:20:20 Tdap 4 completed Vera Ramirez NP Attn: Accounting[address] [facility], [place], [address], [place] [facility] 08/18/2024 12:48:41 Tdap 3 completed Not Available [facility] 12/25/2019 02:11:46 Past Encounters Encounter ID Performer Location Encounter Start Date Encounter Closed Date Diagnosis/Indication Diagnosis SNOMED-CT Code Diagnosis ICD10 Code Diagnosis Note [id number] Alban Hernandez MD [facility] [address] [facility] [address] 03/29/2016 14:17:55 03/29/2016 18:22:51 Pain in axilla 643081673 M79.629 Cervical d isc disorder 135708909 M50.90 [id number] Alban Hernandez MD [facility] [address] [place] [address] 08/30/2016 14:39:17 09/04/2016 14:36:41 Hyperlipidemia 72158767 E78.2 Pain in th oracic spine 663487286 M51.05 Low back pain 049548052 M54.5 Cervical d isc disorder 410847978 M50.90 Cramp in lower limb 4499 17183 R25.2 Skin problem 077153128 R 21 [id number] February Latonia [facility] [address] [place] [address] 01/17/2017 11:43:36 01/17/2017 13:58:28 Hyperlipidemia 83396512 E78.2 [id number] Dagmar Jesus Manuel [facility] [address] [place] [address] 05/02/2017 16:31:27 05/06/2017 10:21:24 Persistent hematuria 064436390 N02.9 [id number] Li Steve MA [facility] [address] [place] [address] 11/06/2018 10:24:38 11/06/2018 14:18:41 Steatosis of liver 698465498 K76.0 [id number] Henna Contreras MA [facility] [address] [place] [address] 05/14/2019 16:53:00 05/17/2019 09:07:44 Hypercholesterolemia 88182402 E78.00 Body mass index 30+ - obesity 417504218 Z68.32 BMI discussed. Patient to increase exercise and decrease calories to achieve heathly weight. BMI to be rechecked at next visit. [id number] Vera Ramirez NP [facility] [address] [place] [address] 06/12/2020 15:05:22 06/13/2020 06:33:03 Body mass index 30+ - obesity 499273614 Z68.34 Advised decreased portion sizes, good food choices, limited eating out or fast food and eliminate soda and juice from diet. Advised physical activity daily and offered encouragem ent to continue with positive changes made so far. Hyperlipidemia 64878182 E78.5 Discussed - Labs- improving Medication s- continue fish oil, fenofibrat e Increasing exercise Diet low in Saturated fats Weight loss. Liver enzy mes level above reference range 635393697 R74.8 Hx of -Hepatitis panel negative - 2005 CT showed fatty liver nothing since then- due to continued elevated labs will order Liver US - does drink but very seldom pt prefers a [facility] facility due to all her other imaginig has been there as well Vitamin D deficiency 347 40305 E55.9 - hx of - had osteoporos is screening showed normal per pt. -Ijll phos normal - check PTH when Vit D is checked Varicose v eins of lower extremity 22431563 I83.93 right posterior knee worse - stands a lot for work and discomfort then- will refer to vascular surgery for further evaluation when patient ready Snoring 51711931 R06.83 - Witnessed sleep apnea- Snores regularly- fatigue throughout the day- nods off during the daywill refer for sleep study when available at place of employment Pruritic rash 55263594 L 28.2 Intermitte nt bilateral hand, left great lateral toe. -aggravate d by anxiety- was on a Benzo in the 80's - Meds ordered - F/U as needed Essential hypertension 07511154 I10 currently not on medication Today's BP 142/74BP @ home 111/82, 124/81, 140/80, 129/78, 124/80Disc ussed medication Maybe needed in future.- Discussed diet/exerc ise. Take occasional BP s, call if consistent ly >140/90. Patient verbalizes understand ing.Pt has strong family hx of heart dz- due to patient concerns will refer to Cardiology for further evaluation for Stress test/ Echo to rule out CADASCVD score risk shows borderline Friday' work best for pt for referral and test. [id number] Vera Ramirez NP [facility] [address] [place] [address] 09/18/2020 16:03:25 09/19/2020 11:25:49 Essential hypertension 82655979 I10 Phone visit Pt is currently seeing Dr Niño and was seen 1 week ago and had Echo done and is currently scheduled for cardiac stress test on 09-25-2020- Discussed diet/exerc ise. Take occasional BP s, call if consistent ly >140/90. Patient verbalizes understand ing. Continue course of treatment with Dr Conley low up in 6 months or sooner if needed [id number] Karisas Baker LPN [facility] [address] [place] [address] 01/02/2021 10:30:41 01/03/2021 09:13:34 Right side sciatica 3730048238 25290 M54.31 [id number] Karissa Baker LPN [facility] [address] [place] [address] 04/24/2022 14:45:03 04/29/2022 08:18:53 Acute urinary tract infection 985193015 N39.0 [id number] Vera Ramirez NP [facility] [address] [place] [address] 06/05/2022 10:45:03 06/05/2022 15:56:05 Essential hypertension 95288402 I10 Pt is currently seeing Dr Niño- last visit 04/18/22- Discussed diet/exerc ise.Take occasional BP s, call if consistent ly >140/90.Dwayne barrow verbalizes understand ing. Continue course of treatment with Dr Niño Mixed hyperlipidemia 267 352247 E78.2 Continues ezetimibe and fenofibrat e that is prescribed by Dr Glo perez recent lipid 04/18/22TC- 170 LDL- 89 HDL- 56 TRG- 152 Vitamin D deficiency 347 65386 E55.9 - hx ofLast lab done 03/2022- ( 21 )Next check via dermatolog y in 3 monthstaki ng OTC 5000IU Vit D3 daily Ankle pain 735939799 M25 .579 Left ankle pain and edema x 3-4 weeksno injury that she is aware ofrecommen d using ankle sleevewill send for XR to r/o fracture or abnormalit y HIV screen ing declined 3113296279 27418 Z53.20 Postmenopausal state 764 44835 Z78.0 Hiatal hernia 49940277 K 44.[address]- smallNo symptoms Loss of hair 401430960 L 65.9 Sees dermTaking Vit D 5000 iu dailyRecom mend starting collagen OTC Adult heal th examination 324063486 Z00.00 Discussed with patient clinical finding and diagnosis. Discussed plan of care including quality measures and treatment options, risks, and benefits with patients. Patient expressed understand ing. The following interventi ons were recommende d: heart healthy low-fat, low-sodium diet, ideal body weight, regular exercise, medication s compliance , and medical follow-up as noted. [id number] Karissa Baker LPN [address] [place] [address] 06/13/2022 10:41:25 06/14/2022 16:21:20 Dysuria 29330350 R30.9 Urinary tr act infectious disease 05874459 N39.0 [id number] Alban Maldonado MD [facility] [address] [place] [address] 06/18/2023 10:01:26 06/19/2023 10:28:58 Adult health examination 722238351 Z00.00 Discussed with patient clinical finding and diagnosis. Discussed plan of care including quality measures and treatment options, risks, and benefits with patients. Patient expressed understand ing. The following interventi ons were recommende d: heart healthy low-fat, low-sodium diet, ideal body weight, regular exercise, medication s compliance , and medical follow-up as noted. Obesity 258256591 E66.9 Discussed BMI - 31.8Advise d decreased portion sizes, good food choices, limited eating out or fast food and eliminate soda and juice from diet.Advis ed physical activity daily Essential hypertension 31297099 I10 Pt is currently seeing Dr Niño & he manages care- Discussed diet/exerc ise.- Take occasional BP s, call if consistent ly >140/90.- Patient verbalizes understand ing. Multiple joint pain 3567 8005 M25.50 increasing Labs ordered Vitamin D deficiency 347 59581 E55.9 - hx oftaking OTC 4000IU Vit D3 daily with Calcium [id number] Vera Ramirez NP [facility] [address] [place] [address] 12/04/2023 15:45:00 12/05/2023 08:10:28 Obesity 343630234 E66.9 Discussed BMI - 31.5Advise d decreased portion sizes, good food choices, limited eating out or fast food and eliminate soda and juice from diet.Advis ed physical activity daily Otitis media 58928664 H6 6.93 Take medication s as prescribed -Avoid water in ear as much as possible-W arm packs for comfort-Ib uprofen/Ty lenol for added pain relief-Do not use Q-tips in earf/u ass needed [id number] Vera Ramirez NP [facility] [address] [place] [address] 08/18/2024 10:28:07 08/18/2024 17:33:35 Adult health examination 861838451 Z00.00 Discussed with patient clinical finding and diagnosis. Discussed plan of care including quality measures and treatment options, risks, and benefits with patients. Patient expressed understand ing. The following interventi ons were recommende d: heart healthy low-fat, low-sodium diet, ideal body weight, regular exercise, medication s compliance , and medical follow-up as noted. Hyperlipidemia 90998952 E78.5 Discussed - Sees Cardiology Medication s - ezetimibe( cardiology prescribes ) fenofibrat e & discussed MegaRed with Krill oil Diet low in Saturated fats Lab ordered Obesity 563295457 E66.8 Discussed BMI - 31Advised decreased portion sizes, good food choices, limited eating out or fast food and eliminate soda and juice from diet.Advis ed physical activity daily Administra tion of diphtheria, pertussis, and tetanus vaccine 646194921 Z23 Consent signed and VIS givenToler ated well Snoring 77608154 R06.83 - Witnessed sleep apnea- Snores regularly- fatigue throughout the day- nods off during the dayEpworth 11-12wi ll refer for sleep medicine Ulcerated nasal mucosa 736089872 J34.0 right nareMedica tion topically as discussed and f/u as needed Postmenopausal state 764 94533 Z78.0 2 years ago was done at [facility] Prediabetes 335369171 R7 3.03 Health Concerns Section Related Observation LastModified by Organization Detai ls LastModified Time None Recorded Concern Status LastModified by Organization Details LastModified Time None Recorded Advance Directives Directive None Recorded Payers Encounter Date Sequence Insurance Name Policy Number Policy Mccloud Covered Member ID Mccloud Member ID Guarantor Name 06/05/2022 2 [place] 113 Jose Krishna Shiva [id number] Jose Krishna Shiva 06/05/2022 1 [place] Lydia A Shannon [id number] Jose Krishna Shiva 06/13/2022 2 [place] 113 Jose Keller Shiva [id number] Jose Krishna Shiva 06/13/2022 1 [place] Lydia A Shannon [id number] Jose Krishna Shiva 06/18/2023 2 [place] 113 Jose Keller Shiva [id number] Jose Krishna Shiva 06/18/2023 1 [place] Lydia A Shannon [id number] 3 Jose Krishna Shiva 12/04/2023 2 [place] 113 Jose Krishna Shiva [id number] Jose Krishna Shiva 12/04/2023 1 [place] Lydia A Shannon [id number] 3 Jose Shannon 08/18/2024 2 [place] 113 Jose Shannon [id number] Jose Shannon 08/18/2024 1 [facility] Lydia Shannon [id number] 3 Jose Shannon Notes Date Note Type Note Provider Name and Address Organization Details Recorded Time 06/05/2022 text/html Here today for y early check upc/o left ankle edema and pain 3-4 weeks- no injury that she is aware ofdenies CP, SOB Vera Ramirez NP Attn: Accounting[address] [place], [address], [facility] 06/05/2022 13:39:37 06/18/2023 text/html [facility] and medication refillPt states she has multiple joint pain and would like to have a blood test to check on inflammation.Pt denies chest pain, SOB and edema Alban Maldonado MD Attn: Accounting[address] [place], [address], [facility] 06/25/2023 10:26:42 12/04/2023 text/html Pt c/o bilateral ear fullness, like there is fluid in them that started 2 weeks ago got better but came back a week ago.Left ear is worse and can not hear out of it.Pt denies chest pain and SOB but has edema in left foot for being on it too long today. Vera Ramirez NP Attn: Accounting,[address] [place], [address], [facility] 12/04/2023 17:46:55 08/18/2024 text/html [facility] and med refill.Pt would like to get a tetanus shot while in office today.Pt states her has told her she stops breathing while sleeping and during last 2 surgery's the anesthesiologist had came in afterwards to ask if she has sleep apnea and recommended she have a sleep study done.Pt states she does snore at times also, has occasional daytime fatigue.Pt denies chest pain, SOB and edema Vera Ramirez NP Attn: Accounting[address] [facility], [place], [address], [facility] 08/18/2024 14:25:42 OBGyn Episode No OBEpisode recorded.
--- OUTSIDE RECORDS SUMMARY | 2025-01-25 07:50 | XMS_ITS | Patient Health Summary ---
Author Organization [facility] Address [address] [place] [address] Care Team Providers Care Tube Coverer Name Role Phone Unavailable Primary Care Provider Unavailabl e Note from [facility],non-owned Affiliates and Associated Physician Practices is amultiple site organization consisting of ambulatory clinics and hospital sitesin [place], [place], [place] and [place]. This disclosure is being madepursuant to the Care Everywhere program and may not contain all information available regarding this patient. Last updated 18.[facility] Social History Tobacco Use Types Packs/Day Years Used Date Smoking Tobacco: Never Assessed Sex and Gender Information Value Date Recorded Sex Assigned at Not on file Gender Identity Not on file Sexual Orientation Not on file Procedures * DERMATOPATHOLOGY(Performed 03/03/2024) * DERMATOPATHOLOGY(Performed 12/25/2020) * DERMATOPATHOLOGY(Performed 08/23/2016) Results * DERMATOPATHOLOGY (03/03/2024 9:49 AM CDT) Only the most recent of3 resultswithin the time period is included. Case Report Dermatopathology Report Case: [id number] Authorizing Provider: Precious Quinonez DO Collected: 03/03/2024 09:49 AM Ordering Location: [facility] - Received: 03/04/2024 07:56 AM DermPath Lab Pathologist: Deann Mosquera MD Specimens: A) - Skin, left anterior ankle B) - Skin, left mid arm 4 3:54 PM CDT DERMATOPATHOLOGY LABORATORY Final Diagnosis Specimen A. SKIN, left anterior ankle: SUBACUTE SPONGIOTIC DERMATITIS (L30.8) (see microscopic description and comment) Specimen B. SKIN, left mid arm: LICHEN PLANUS-LIKE KERATOSIS (BENIGN LICHENOID KERATOSIS) (L82.1) 4 3:54 PM CDT DERMATOPATHOLOGY LABORATORY Clinical History A-B: R/O NMSC 3:54 PM [facility] Gross Description Specimen A: Received is one formalin filled container labeled with the patient's name and designated left anterior ankle. The specimen consists of a shave biopsy measuring 8x5x1 mm. Jar 0. Specimen B: Received is one formalin filled container labeled with the patient's name and designated left mid arm. The specimen consists of a shave biopsy measuring 6x5x1 mm. Jar 0. 3:54 PM [facility] Microscopic Description Specimen A. SKIN, left anterior ankle: There is focal parakeratosis with neutrophils and spongiosis of the epidermis. In the dermis there is a mainly superficial perivascular lymphoid infiltrate with scattered eosinophils. Additionally, slight dermal edema and cellular debris are present. Periodic acid-Elise (PAS) stain is negative for fungal elements. COMMENT: These histological findings are consistent with an eczematous dermatitis including nummular dermatitis, contact dermatitis or less likely remnants of a resolving arthropod bite reaction. Clinicopathologic correlation is recommended. Specimen B. SKIN, left mid arm: Sections show skin with a bandlike lymphocytic infiltrate that obscures the dermo-epidermal junction, along with with vacuolar change and dyskeratotic cells, and toward the center of the specimen, a subepidermal separation. 3:54 PM [facility] Disclaimer An external and internal positive and negative controls are appropriate for the histochemical, immunohistochemical and immunofluorescence stain(s) in this case (if any), except where stated explicitly. The performance characteristics of the stain(s) cited in this report were developed and its performance characteristic determined by the Dermatopathology Laboratory at [facility], directed by Dr. Fadia Gonzalez. These tests need not be, and therefore are not, approved by the [place] Food and Drug Administration. The tests are used for clinical purposes. Billing Codes Specimen Charges Stain Charges 87597 95370 1 1 55243 1 3:54 PM CDT DERMATOPATHOLOGY LABORATORY Embedded Images 3:54 PM T DERMATOPATHOLOGY LABORATORY Pathology/Cytology TISSUE SPECIMEN FROM SKIN / Unknown 03/03/2024 9:49 AM CDT 03/04/2024 7:56 AM CDT Miscellaneous samples (specimen) TISSUE SPECIMEN FROM SKIN / Unknown 03/03/2024 9:49 AM CDT 03/04/2024 7:56 AM CDT Precious Quinonez DO LAB - PATHOLOGY/C YTOLOGY ORDERABLES Performing Organization Address City/State/[facility] Co de Phone Number DERMATOPATHOLOGY LABORATORY [facility] - Department of Dermatology [facility] Specialized Medicine [address] [place] [address], [address] [phone]
--- OUTSIDE RECORDS SUMMARY | 2025-01-25 07:50 | XMS_ITS | Clinical Summary ---
Author Organization [facility] Address [address] [place] [id number] Care Team Providers Care Water Project Engineer Name Role Phone Unavailable Primary Care Provider Unavailabl e Social History Tobacco Use Types Packs/Day Years Used Date Smoking Tobacco: Never Assessed Comments Unknown Sex and Gender Information Value Date Recorded Sex Assigned at Not on file Legal Sex Female 4:37 PM CDT Gender Identity Not on file Sexual Orientation Not on file Plan of Treatment Health Maintenance Due Date Last Done Comments Colorectal Cancer Screening Colonoscopy (10 Years) 1956 Hepatitis C 1974 DTaP, Tdap and Td Vaccines ( 1 - Tdap) 1975 Mammogram Screening 1996 Zoster Vaccines (1 of 2) 2006 Dexa Scan (General) 2021 Pneumococcal Vaccine: 65+ Ye ars (1 of 1 - PCV) 2021 COVID-19 Vaccine ( - 2023-2 5 season) 2024 Influenza Adult (#1) 2024 RSV Immunization or 60+ Years (1 - 1-dose 75+ series) 2031 Meningococcal B Vaccine Aged Out No l onger eligible based on patient's age to complete this topic Meningococcal Vaccine Aged Out No rupa jose eligible based on patient's age to complete this topic RSV Immunizations Under 20 Months Aged Out No longer eligible based on patient's age to complete this topic
--- OUTSIDE RECORDS SUMMARY | 2025-01-25 07:50 | XMS_ITS | Referral Summary ---
Author Organization [facility] Address [address] [place] [address] Care Team Providers Care Roof Cement And Paint Maker Helper Name Role Phone Unavailable Primary Care Provider Unavailabl e Source Comments [facility],non-owned Affiliates and Associated Physician Practices is amultiple site organization consisting of ambulatory clinics and hospital sitesin [place], [place], [place] and [place]. This disclosure is being madepursuant to the Care Everywhere program and may not contain all information available regarding this patient. Last updated 18.[facility] Social History Tobacco Use Types Packs/Day Years Used Date Smoking Tobacco: Never Assessed Sex and Gender Information Value Date Recorded Sex Assigned at Not on file Gender Identity Not on file Sexual Orientation Not on file Plan of Treatment Not on file
--- OUTSIDE RECORDS SUMMARY | 2025-01-25 07:50 | XMS_ITS | Encounter Summary ---
Author Organization [facility] Address [address] [place] [address] Care Team Providers Care Personal Computer Specialist Name Role Phone Unavailable Primary Care Provider Unavailabl e Encounter Details Date Type Department Care Team (Late st Contact Info) Description 03/03/2024 Lab Requisition [facility] - DermPath Lab [address] [place] [address] Precious Quinonez DO [address] [place] [address] Social History Tobacco Use Types Packs/Day Years Used Date Smoking Tobacco: Never Assessed Sex and Gender Information Value Date Recorded Sex Assigned at Not on file Gender Identity Not on file Sexual Orientation Not on file documented as of this encounter Plan of Treatment Not on file documented as of this encounter Procedures Procedure Name Priority Date/Time Associated Diagnosis Comments DERMATOPATHOLOGY Routine 03/03/2024 9:49 AM CDT documented in this encounter Results * DERMATOPATHOLOGY (03/03/2024 9:49 AM CDT) Case Report Dermatopathology Report Case: [id number] Authorizing Provider: Precious Quinonez DO Collected: 03/03/2024 09:49 AM Ordering Location: [facility] - Received: 03/04/2024 07:56 AM DermPath Lab Pathologist: Deann Mosquera MD Specimens: A) - Skin, left anterior ankle B) - Skin, left mid arm 3:54 PM CDT DERMATOPATHOLOGY LABORATORY Final Diagnosis Specimen A. SKIN, left anterior ankle: SUBACUTE SPONGIOTIC DERMATITIS (L30.8) (see microscopic description and comment) Specimen B. SKIN, left mid arm: LICHEN PLANUS-LIKE KERATOSIS (BENIGN LICHENOID KERATOSIS) (L82.1) 4 3:54 PM T DERMATOPATHOLOGY LABORATORY Clinical History A-B: R/O NMSC 3:54 PM T DERMATOPATHOLOGY LABORATORY Gross Description Specimen A: Received [...] measuring 6x5x1 mm. Jar 0. 3:54 PM [facility] DERMATOPATHOLOGY LABORATORY Microscopic Description Specimen A. SKIN, [...] the specimen, a subepidermal separation. 3:54 PM T DERMATOPATHOLOGY LABORATORY Disclaimer An external and internal positive and negative controls are appropriate for the histochemical, immunohistochemical and immunofluorescence stain(s) in this case (if any), except where stated explicitly. The performance characteristics of the stain(s) cited in this report were developed and its performance characteristic determined by the Dermatopathology Laboratory at [facility], directed by Dr. Fadia Gonzalez. These tests need not be, and therefore are not, approved by the [place] Food and Drug Administration. The tests are used for clinical purposes. Billing Codes Specimen Charges Stain Charges 86670 77209 1 1 62714 1 4 3:54 PM CDT DERMATOPATHOLOGY LABORATORY Embedded Images 3:54 PM T DERMATOPATHOLOGY LABORATORY Pathology/Cytology TISSUE SPECIMEN FROM SKIN / Unknown 03/03/2024 9:49 AM CDT 03/04/2024 7:56 AM CDT Miscellaneous samples (specimen) TISSUE SPECIMEN FROM SKIN / Unknown 03/03/2024 9:49 AM CDT 03/04/2024 7:56 AM CDT Precious Quinonez DO LAB - PATHOLOGY/C YTOLOGY ORDERABLES DERMATOPATHOLOGY LABORATORY [facility] - Department of Dermatology [facility] Specialized Medicine [address] [place] [address], [address] [phone] documented in this encounter Visit Diagnoses Not on filedocumented in this encounter
--- OUTSIDE RECORDS SUMMARY | 2025-01-25 07:50 | XMS_ITS | Clinical Summary ---
Author Organization [facility] Address [address] [place] [address] Care Team Providers Care Menu Planner Name Role Phone Unavailable Primary Care Provider Unavailabl e Source Comments [facility],non-owned Affiliates and Associated Physician Practices is amultiple site organization consisting of ambulatory clinics and hospital sitesin [place], [place], [place] and [place]. This disclosure is being madepursuant to the Care Everywhere program and may not contain all information available regarding this patient. Last updated 18.[facility] [employer] Social History Tobacco Use Types Packs/Day Years Used Date Smoking Tobacco: Never Assessed Sex and Gender Information Value Date Recorded Sex Assigned at Not on file Gender Identity Not on file Sexual Orientation Not on file Plan of Treatment Health Maintenance Due Date Last Done Comments BONE DENSITY TESTING 1955 COLOGUARD (AGES 45-75) - COL ON CA SCREENING 1956 COLON MONITORING 1956 COLONOSCOPY - COLON CA SCREENING 1956 CT COLONOGRAPHY - COLON CA SCREENING 1955 Colorectal Cancer Screening 1956 FIT - COLON CA SCREENING 1956 FLEX SIG - COLON CA SCREENING 1956 LIPID TESTING 1956 MAMMOGRAM 1955 MEDICARE AWV 12 MONTHS 1956 HEPATITIS C SCREENING 01/05/1974 DTAP/TDAP/TD VACCINES (1 - Tdap) 1975 PNEUMOCOCCAL VACCINE 50+ (1 of 1 - PCV) 2006 ZOSTER VACCINE (1 of 2) 2006 COVID-19 VACCINE (1 - 2023-2 5 season) 2024 INFLUENZA VACCINE (#1) 2024 DEPRESSION SCREENING 11/24/2024 Respiratory Syncytial Virus (RSV) Vaccine Pt: or over 60 yrs (1 - 1-dose 75+ series) 2031 HEPATITIS B VACCINE Aged Out No longe r eligible based on patient's age to complete this topic HIB VACCINE Aged Out No longer eligi ble based on patient's age to complete this topic HPV VACCINE Aged Out No longer eligi ble based on patient's age to complete this topic MENINGOCOCCAL (Group B) VACCINE Aged Out No longer eligible based on patient's age to complete this topic MENINGOCOCCAL VACCINE Aged Out No rupa jose eligible based on patient's age to complete this topic Lydia Shannon Personal/Famil y Self 1955 [address] [place] [address]
[2025-02-15 14:10] VITALS: BMI 32.3
--- NOTE | 2025-02-15 14:10 | P.SLEEP_ITS ---
Sleep Study Date of Study: 01/25/25 Ordering Provider: Zheng Ford, PRODUCTION PATTERN MAKER Interpreting Physician: Karissa Verdin DO Sleep Study Type: CPAP Titration Height: 1.65 m Weight: 87.997 kg Body Mass Index: 32.3 Neck Circumference (inches): 16 [place]: 13 Reason for Sleep Study Polysomnogram on 11/04/2024 that showed an overall AHI of 23.7 with desaturation down to 78%. LEWIS of 5.4. Sleep History The patient is a 70-year-old female that had a sleep study ordered by her ENT for evaluation of sleep apnea. The patient denies awakening from sleep short breath. She rarely awakens at night with heartburn, belching. She frequently snores and is frequently loud enough that others complain. She frequently has trouble sleep when she has a cold. She denies waking up gasping for air throughout the night. She frequently has breathing problems at night observed by herself or others. She occasionally sweats excessively at night. She denies having heart palpitations or irregular heartbeats during the night. She o ccasionally falls asleep during the day but never while driving. She denies sleep paralysis, cataplexy and hypnagogic / hypnopompic hallucinations. She denies having trouble at school or work. She denies feeling afraid of going to sleep. She rarely has nightmares. She rarely remembers her dreams. She occasionally has thoughts racing through her mind. She rarely feels sad or depressed. She occasionally has anxiety. She occasionally has muscular tension. She denies noticing parts of her body jerk. She denies kicking during the night. She rarely has crawling and aching feelings her legs but occasionally has leg pain during the night. She occasionally grinds her teeth during sleep and occasionally awakens with morning jaw pain. She is occasionally bothered by pain during the day rarely awakened by pain during the night. She occasionally wakes up feeling stiff in morning. She occasionally wakes up with sore or achy muscles. She frequently wakes up with pain in the neck, spine or other joints. She goes to bed at 10:30 p.m. on weekdays and between 10:30-11 p.m. on the weekends. It takes her 5 minutes to fall asleep. She wakes up 2-3 times per night to urinate and it can take anywhere from a few minutes up to several hours to fall back asleep. She wakes up between 6-7 a.m. weekdays and 7:30 a.m. weekends. She typically gets 6.5-8 hours of sleep he will stay in bed for 5-10 minutes after waking up in the morning. She denies consuming any caffeinated beverages within 2 hours of bedtime. She denies engaging in physical exercise before bedtime. She will watch television before falling asleep. She will occasionally take naps in the afternoon or the evening but they are not refreshing. She consumes 2-4 caffeinated beverages per day. She rarely consumes an alcoholic beverage. She denies tobacco and recreational drug use. Sleep Procedure A full night CPAP Titration using the [employer] multi-channel system recorded the standard physiologic parameters including EEG, EOG, submentalis EMG, anterior tibialis EMG, EKG, body position, nasal and oral airflow using nasal pressure sensor and thermistor.? Respiratory parameters of chest and abdominal movements were recorded with Respiratory Inductance Plethysmography belts. Oxygen saturation was recorded by pulse oximetry. Video monitoring was al so performed. Sleep stages, periodic limb movements, and EEG arousals were scored in 30 second epochs according to the criteria of the AASM Scoring Manual. The Apnea-Hypopnea Index was calculated using CMS guidelines for definition of hypopnea with 4% O2 desaturations while scoring respiratory events. Sleep Architecture The total recording time was 389.5 minutes.? The total sleep time was 222.0 minutes. Sleep latency was 24.9 minutes. REM latency was 159.5 minutes. Sleep efficiency was 57.0%. The patient had 49 awakenings for an awakening index of 13.2. Wake after Sleep Onset time was 142.5 minutes. The patient spent 21.0 minutes, 9.5% of total sleep time in Stage N1. The patient spent 145.5 minutes, 65.5% in Stage N2. The patient spent 37.5 minutes, 16.9% in Stage N3. The patient spent 18.0 minutes, 8.1% in Stage REM. Respiratory Analysis The patient had 26 hypopneas and 13 obstructive apneas for an overall Apnea Hypopnea Index of 10.5 events per hour. The REM Apnea Hypopnea Index was 0. The NREM Apnea Hypopnea Index was 11.5. The patient had a Central Apnea Hypopnea Index of 0. There was no evidence of Armen-Hawkins Respirations. The patient was started on CPAP 5 cm H2O and titrated to CPAP 17 cm H2O due to obstructive apneas and hypopneas. The patient was able to fall asleep starting on CPAP 5 cm H2O. The patient was able to achieve REM sleep starting on CPAP 9 cm H2O. The patient was able to achieve a residual AHI less than 5 with both NREM and REM sleep on 9 cm H2O. On CPAP 9 cm H2O, the patient spent 56.5 minutes in NREM and 18 minutes in REM with 5 hypopneas, resulting in an AHI of 4.0. The patient had a sleep efficiency of 76% on this pressure setting. The pa tient switched to the supine position once titrated to 11 cm H2O and developed obstructive apneas and hypopneas. When the patient was in the supine position, there was no optimal pressure setting found that led to a residual AHI <10. Arousals There were 158 total arousals for an arousal index of 42.7. There were 84 spontaneous arousals for an index of 22.7. ?There were 33 arousals due to respiratory events for an index of 8.9. There were 25 arousals due to periodic limb movements for an index of 6.8.? There were 18 arousals due to isolated limb movements for an index of 4.9. Periodic Limb Movements The patient had 26 isolated limb movements with an index of 7.0. The patient had 37 periodic limb movements with index of 10.0. Patient had a total of 63 limb movements with a total limb movement index of 17.0. Oximetry Data The patient had an average oxygen saturation of 96.0% in sleep with a minimum oxygen saturation of 88.0% and a maximum oxygen saturation of 98.0%. The patient had 37 oxygen desaturations that were 4% or greater resulting in an Oxygen Desaturation Index of 10.0.? The patient spent 0 minutes of total sleep time with an oxygen saturation below 88%. Snoring Profile Mild to moderate snoring was present in the beginning of the study. The snoring resolved once the patient was titrated to 9 cm H2O. Cardiac Profile The EKG showed normal sinus rhythm. No arrhythmias or premature beats were seen. The patient had an average pulse rate of 64.3 bpm with a minimum pulse rate of 59.0 bpm and a maximum pulse rate of 79.0 bpm. ? EEG Profile No signs of seizure activity seen. Assessment and Plan Assessment and Plan (1) LUZ MARIA (obstructive sleep apnea): Code(s): G47.33 - Obstructive sleep apnea (adult) (pediatric) Status: Acute Assessment and Plan: The patient was started on CPAP 5 cm H2O and titrated to CPAP 17 cm H2O due to obstructive apneas and hypopneas. We were able to find a pressure setting that resolved in the patient's sleep apnea in the lateral position but no optimal pressure setting was found during this study to treat the sleep apnea in the supine position. I recommend that the patient be prescribed CPAP 9 cm H2O, size medium Resmed AirFit [id number], CPAP filters/tubing and heated humidity. I recommend that the patient try to sleep in the lateral position as much as possible. This should be used with all episodes of sleep.? Compliance should be reviewed within 31-90 days of starting therapy for usage greater than 4 hours per night greater than 70% of the nights. The patient should be asked about symptoms such as?excessive daytime sleepiness, quality of sleep, decreased nocturia, increased?mental functioning such as memory, mood, and concentration. Data The data obtained during this sleep study is adequate for interpretation. Certification This sleep study has been reviewed by a board certified sleep medicine physician.
== END 2025-01-26 07:08 | disposition home or self-care (01) ==
LOC: ANHCSM 07:45
PROVIDERS: Visit Provider Nurse Practitioner Family
DX: G47.33 Obstructive sleep apnea (adult) (pediatric) (principal)
CPT/HCPCS: 95811